=== PATIENT | female | born 1965 | race African-American/Black ===

== ENCOUNTER 2017-01-24 17:26 | Inpatient (IN) | payer MEDICAID ==
[2017-01-24] VITALS (11 sets, daily range): BP systolic 173–264; BP diastolic 82–134; PULSE 64–82; RESP 12–18; TEMP 98; O2SAT 95–100
[~2017-01-24] VITALS: Ht 162.6 cm; Wt 127.2 kg
[~2017-01-24 17:26] MED LIST: AMLO10 PO; FURO1TAB93 PO; HYDRA50 PO; INSU-118; ISOS30TA3 PO; METO50TA PO; NRSS SQ; POTA20PA PO; ST J81CH PO
--- NOTE | 2017-01-24 17:58 | PD ---
HPI Chief Complaint: GI Complaint Time Seen by Provider: 17:58 Travel History International Travel<30 days: No Contact w/Intl Traveler<30days: No Traveled to known affect area: No History of Present Illness HPI 51-year-old female came to the emergency room with history of dizziness since past 5 days. Patient says that she feels like she is leaning on one side which is mostly on the left. The symptoms get worse with sudden movements. No history of tinnitus or decreased hearing. Last night she had mild headache. She has been nauseous and today she vomited 3 times. No history of syncopal episode. Patient had a blood pressure of 230/105 when I went in the room. She has history of hypertension and she says she has been taking her medications like she supposed to. She was recently taken off one of her blood pressure medication one month ago by her primary care. Patient was admitted last month in [facility] fluid in her lungs. Currently she does not have any headache. Patient is awake and answering questions appropriately. [facility] Past Medical History Narrative Medical List of her past medical, surgical, social and family history is reviewed from the nursing note. Asthma: No Autoimmune Disease: No Blood Disorders: No Anxiety: No Depression: No Heart Rhythm Problems: Yes Cancer: No Cardiac Catheterization: Yes Cardiovascular Problems: Yes High Cholesterol: No Chemotherapy: No Chest Pain: Yes Congestive Heart Failure: No COPD: Yes Coronary Artery Disease: Yes (STATES SHE HAD AN [place] 07/2009) Diabetes: Yes Patient Takes Glucophage: Yes Diminished Hearing: No Endocrine: No Gastrointestinal Disorders: No Genitourinary: No Hypertension: Yes Immune Disorder: No Musculoskeletal: No Neurologic: No Psychiatric: No Reproductive: No Respiratory: Yes Myocardial Infarction: Yes (July 2009) Pneumonia: Yes (JULY 2009 WHEN HAD [place]) Radiation Therapy: No Sickle Cell Disease: No Sleep Apnea: No Thyroid Disease: Yes ?: Not Menopausal: No : 3 Para: 3 Past Surgical History Abdominal Surgery: No AICD: No Arteriovenous Shunt: No Cardiac Surgery: No Section: Yes Coronary Artery Bypass Graft: No Ear Surgery: No Endocrine Surgery: No Eye Surgery: No Genitourinary Surgery: No Gynecologic Surgery: Yes (C section) Insulin Pump: No Joint Replacement: No Oral Surgery: No Pacemaker: No Thoracic Surgery: No Other Surgery: Yes (LYPOMA REMOVED FROM CHEST) Family History Family Myocardial Infarction: Yes Social History Alcohol Use: Yes (SOCIALLY) Tobacco Use: Yes (1/2 ppd) Substance Use: No Allergies-Medications (Allergen,Severity, Reaction): Coded Allergies: diatrizoate meglumine (Unverified Allergy, Severe, RASH, 01/24/17) gadobenic acid (Unverified Allergy, Severe, RASH, 01/24/17) gadodiamide (Unverified Allergy, Severe, RASH, 01/24/17) gadoteridol (Unverified Allergy, Severe, RASH, 01/24/17) iodine (Unverified Allergy, Severe, RASH, HIVES, 01/24/17) iodixanol (Unverified Allergy, Severe, RASH, 01/24/17) iohexol (Unverified Allergy, Severe, RASH, 01/24/17) potassium iodide (Unverified Allergy, Severe, RASH, HIVES, 01/24/17) povidone-iodine (Unverified Allergy, Severe, RASH, HIVES, 01/24/17) sodium iodide (Unverified Allergy, Severe, RASH, HIVES, 01/24/17) sodium iodide (Unverified Allergy, Severe, RASH, HIVES, 01/24/17) Comments List of her allergies reviewed from the nursing note. Reported Meds & Prescriptions Reported Meds & Active Scripts Active Reported Metformin (Metformin HCl) 1,000 Mg Tab 1,000 Mg PO BID With meals Potassium Chloride ER (Potassium Chloride) 20 Meq Tab 20 Meq PO DAILY Metoprolol Tartrate 50 Mg Tab 50 Mg PO BID Isosorbide Mononitrate ER (Isosorbide Mononitrate) 30 Mg Betzy 30 Mg PO DAILY Hydralazine HCl 50 Mg Tablet 75 Mg PO Q8HR Lasix (Furosemide) 40 Mg Tab 40 Mg PO DAILY Aspirin Adult Low Strength (Aspirin) 81 Mg Tabdr 81 Mg PO DAILY Narrative Medication List of her home medications reviewed from the nursing note. Review of Systems Except as stated in HPI: all other systems reviewed are Neg Physical Exam Narrative GENERAL: Awake, alert, morbidly obese, moderate distress SKIN: Focused skin assessment warm/dry. HEAD: Atraumatic. Normocephalic. EYES: Pupils equal and round. No scleral icterus. No injection or drainage. ENT: No nasal bleeding or discharge. Mucous membranes pink and moist. NECK: Trachea midline. No JVD. CARDIOVASCULAR: Regular rate and rhythm. No murmur appreciated. RESPIRATORY: No accessory muscle use. Clear to auscultation. Breath sounds equal bilaterally. GASTROINTESTINAL: Abdomen soft, non-tender, nondistended. Hepatic and splenic margins not palpable. MUSCULOSKELETAL: No obvious deformities. No clubbing. No cyanosis. No edema. NEUROLOGICAL: Awake and alert. No obvious cranial nerve deficits. Motor grossly within normal limits. Normal speech. PSYCHIATRIC: Appropriate mood and affect; insight and judgment normal. Data Data Last Documented VS Vital Signs Date Time Temp Pulse Resp B/P (MAP) Pulse Ox O2 Delivery O2 Flow Rate FiO2 01/24/17 20:17 76 14 186/82 (116) 100 Room Air 01/24/17 17:30 98.0 Orders Orders Electrocardiogram (01/24/17 ) Prothrombin Time / Inr (Pt) (01/24/17 18:21) Complete Blood Count With Diff (01/24/17 18:21) Basic Metabolic Panel (Bmp) (01/24/17 18:21) Troponin I (01/24/17 18:21) Urinalysis - C+S If Indicated (01/24/17 18:21) Ct Brain W/O Iv Contrast(Rout) (01/24/17 18:21) Ecg Monitoring (01/24/17 18:21) Iv Access Insert/Monitor (01/24/17 18:21) Oximetry (01/24/17 18:21) Ondansetron Inj (Zofran Inj) (01/24/17 18:30) Sodium Chloride 0.9% Flush (Ns Flush) (01/24/17 18:30) Nicardipine Inj (Cardene Inj) (01/24/17 18:30) Meclizine (Antivert) (01/24/17 19:15) Urine Culture (01/24/17 18:51) Ceftriaxone Inj (Rocephin Inj) (01/24/17 19:45) Aspirin (Aspirin) (01/24/17 20:00) Admit Order (Ed Use Only) (01/24/17 20:22) Labs Laboratory Tests Test 01/24/17 18:30 9 18:51 White Blood Count 11.2 TH/MM3 Red Blood Count 4.54 MIL/MM3 Hemoglobin 12.0 GM/DL Hematocrit 36.9 % Mean Corpuscular Volume 81.3 FL Mean Corpuscular Hemoglobin 26.5 PG Mean Corpuscular Hemoglobin Concent 32.6 % Red Cell Distribution Width 17.8 % Platelet Count 282 TH/MM3 Mean Platelet Volume 10.5 FL Neutrophils (%) (Auto) 54.9 % Lymphocytes (%) (Auto) 35.4 % Monocytes (%) (Auto) 8.1 % Eosinophils (%) (Auto) 0.8 % Basophils (%) (Auto) 0.8 % Neutrophils # (Auto) 6.2 TH/MM3 Lymphocytes # (Auto) 4.0 TH/MM3 Monocytes # (Auto) 0.9 TH/MM3 Eosinophils # (Auto) 0.1 TH/MM3 Basophils # (Auto) 0.1 TH/MM3 CBC Comment DIFF FINAL Differential Comment Prothrombin Time 10.7 SEC Prothromb Time International Ratio 1.0 RATIO Blood Urea Nitrogen 11 MG/DL Creatinine 1.34 MG/DL Random Glucose 250 MG/DL Calcium Level 8.7 MG/DL Sodium Level 137 MEQ/L Potassium Level 3.5 MEQ/L Chloride Level 102 MEQ/L Carbon Dioxide Level 27.0 MEQ/L Anion Gap 8 MEQ/L Estimat Glomerular Filtration Rate 51 ML/MIN Troponin I 0.04 NG/ML Urine Color YELLOW Urine Turbidity HAZY Urine pH 6.0 Urine Specific [place] 1.015 Urine Protein TRACE mg/dL Urine Glucose (UA) 1000 mg/dL Urine Ketones NEG mg/dL Urine Occult Blood NEG Urine Nitrite NEG Urine Bilirubin NEG Urine Urobilinogen LESS THAN 2.0 MG/DL Urine Leukocyte Esterase MOD Urine RBC 14 /hpf Urine WBC 8 /hpf Urine Squamous Epithelial Cells 24 /hpf Urine Bacteria RARE /hpf Microscopic Urinalysis Comment CATH-CULTURE IND MDM Medical Decision Making Medical Screen Exam Complete: Yes Emergency Medical Condition: Yes Medical Record Reviewed: Yes Interpretation(s) Twelve-lead EKG was reviewed by me. Normal sinus rhythm, normal axis, LVH by voltage criteria, lateral T wave inversions which seems like LVH strain and unchanged from 05/20/2015. Heart rate of 64 bpm. Differential Diagnosis Intracranial bleed, stroke, hypertensive crisis Narrative Course 6:57 PM awaiting for blood test results and CAT scan to be done and resulted. Patient has been started on Cardene drip to lower the blood pressure. She will need to be admitted. Case will be signed over to the oncoming ER physician. Critical Care Narrative Aggregate critical care time was 30 minutes. Time to perform other separately billable procedures was not included in the critical care time. My time did not include minutes spent treating any other patients simultaneously or on activities that did not directly contribute to the patient's treatment. The services I provided to this patient were to treat and/or prevent clinically significant deterioration that could result in: Hypotensive crisis, Cardene drip I provided critical care services requiring my management, as noted below: Chart data review, documentation time, medication orders and management, vital sign assessments/reviewing monitor data, ordering and reviewing lab tests, ordering and interpreting/reviewing x-rays and diagnostic studies, care of the patient and discussion of the patient with the admitting physicians. Procedures EKG Prior to Arrival: Kellen Myers MD Jan 24, 2017 17:58
[2017-01-24] MEDS ORDERED: METF1000 PO (18:06)
[2017-01-24] MEDS ORDERED: METO50TA PO (18:06)
[2017-01-24] MEDS ORDERED: FURO1TAB60 PO (18:06)
[2017-01-24] MEDS ORDERED: ISOS30TA3 PO (18:06)
[2017-01-24] MEDS ORDERED: ASPI1TAB91 PO (18:06)
[2017-01-24] MEDS ORDERED: HYDR-3800 PO (18:06)
[2017-01-24] MEDS ORDERED: POTA-163 PO (18:06)
[2017-01-24] MEDS ORDERED: ONDANSETRON HCL 4 MG/2 ML VIAL IVP ONE (18:30)
[2017-01-24] MEDS ORDERED: SODIUM CHLORIDE 0.9% FLUSH 10 ML FLUSH IVF PRN (18:30)
[2017-01-24 18:40] LABS: AUTOMATED NEUTROPHIL # 6.2 TH/MM3 (1.8-7.7); BASOPHIL # 0.1 TH/MM3 (0-0.2); BASOPHIL % 0.8 % (0.0-2.0); EOSINOPHIL # 0.1 TH/MM3 (0-0.4); EOSINOPHIL % 0.8 % (0.0-4.0); HEMATOCRIT 36.9 % (35.0-46.0); HEMO FLAGS DIFF FINAL; LYMPH % 35.4 % (9.0-44.0); MEAN CELL VOLUME 81.3 FL (80.0-100.0); MEAN CORPUSCULAR HEMOGLOBIN 26.5 PG (27.0-34.0); MEAN CORPUSCULAR HGB CONC 32.6 % (32.0-36.0); MONO % 8.1 % (0.0-8.0); NEUT % 54.9 % (16.0-70.0); PLATELET COUNT 282 TH/MM3 (150-450); RED BLOOD COUNT 4.54 MIL/MM3 (4.00-5.30); RED CELL DISTRIBUTION WIDTH 17.8 % (11.6-17.2); WHITE BLOOD COUNT 11.2 TH/MM3 (4.0-11.0)
[2017-01-24] MEDS: niCARdipine INJ 25 MG in SODIUM CHLOR 0.9% 250 ML INJ 240 ML IV PRN ×3 (18:47→23:30)
[2017-01-24 18:48] LABS: PROTHROMBIN TIME - PATIENT 10.7 SEC (9.8-11.6)
--- NOTE | 2017-01-24 19:08 | PD ---
Physical Exam Date Seen by Provider: Jan 24, 2017 Time Seen by Provider: 19:06 Narrative The patient is a 51-year-old female was initially evaluated by the previous physician, Dr. Graves. Please refer to the initial history, physical, diagnostic evaluation, and treatment modality plan. The patient was signed out at [address] brain and laboratory evaluation pending for hypertensive emergency. Data Data Last Documented VS Vital Signs Date Time Temp Pulse Resp B/P (MAP) Pulse Ox O2 Delivery O2 Flow Rate FiO2 01/24/17 20:17 76 14 186/82 (116) 100 Room Air 01/24/17 17:30 98.0 Orders Orders Electrocardiogram (01/24/17 ) Prothrombin Time / Inr (Pt) (01/24/17 18:21) Complete Blood Count With Diff (01/24/17 18:21) Basic Metabolic Panel (Bmp) (01/24/17 18:21) Troponin I (01/24/17 18:21) Urinalysis - C+S If Indicated (01/24/17 18:21) Ct Brain W/O Iv Contrast(Rout) (01/24/17 18:21) Ecg Monitoring (01/24/17 18:21) Iv Access Insert/Monitor (01/24/17 18:21) Oximetry (01/24/17 18:21) Ondansetron Inj (Zofran Inj) (01/24/17 18:30) Sodium Chloride 0.9% Flush (Ns Flush) (01/24/17 18:30) Nicardipine Inj (Cardene Inj) (01/24/17 18:30) Meclizine (Antivert) (01/24/17 19:15) Urine Culture (01/24/17 18:51) Ceftriaxone Inj (Rocephin Inj) (01/24/17 19:45) Aspirin (Aspirin) (01/24/17 20:00) Admit Order (Ed Use Only) (01/24/17 20:22) Labs Laboratory Tests Test 01/24/17 18:30 01/24/17 18:51 White Blood Count 11.2 TH/MM3 Red Blood Count 4.54 MIL/MM3 Hemoglobin 12.0 GM/DL Hematocrit 36.9 % Mean Corpuscular Volume 81.3 FL Mean Corpuscular Hemoglobin 26.5 PG Mean Corpuscular Hemoglobin Concent 32.6 % Red Cell Distribution Width 17.8 % Platelet Count 282 TH/MM3 Mean Platelet Volume 10.5 FL Neutrophils (%) (Auto) 54.9 % Lymphocytes (%) (Auto) 35.4 % Monocytes (%) (Auto) 8.1 % Eosinophils (%) (Auto) 0.8 % Basophils (%) (Auto) 0.8 % Neutrophils # (Auto) 6.2 TH/MM3 Lymphocytes # (Auto) 4.0 TH/MM3 Monocytes # (Auto) 0.9 TH/MM3 Eosinophils # (Auto) 0.1 TH/MM3 Basophils # (Auto) 0.1 TH/MM3 CBC Comment DIFF FINAL Differential Comment Prothrombin Time 10.7 SEC Prothromb Time International Ratio 1.0 RATIO Blood Urea Nitrogen 11 MG/DL Creatinine 1.34 MG/DL Random Glucose 250 MG/DL Calcium Level 8.7 MG/DL Sodium Level 137 MEQ/L Potassium Level 3.5 MEQ/L Chloride Level 102 MEQ/L Carbon Dioxide Level 27.0 MEQ/L Anion Gap 8 MEQ/L Estimat Glomerular Filtration Rate 51 ML/MIN Troponin I 0.04 NG/ML Urine Color YELLOW Urine Turbidity HAZY Urine pH 6.0 Urine Specific [place] 1.015 Urine Protein TRACE mg/dL Urine Glucose (UA) 1000 mg/dL Urine Ketones NEG mg/dL Urine Occult Blood NEG Urine Nitrite NEG Urine Bilirubin NEG Urine Urobilinogen LESS THAN 2.0 MG/DL Urine Leukocyte Esterase MOD Urine RBC 14 /hpf Urine WBC 8 /hpf Urine Squamous Epithelial Cells 24 /hpf Urine Bacteria RARE /hpf Microscopic Urinalysis Comment CATH-CULTURE IND MDM Medical Record Reviewed: Yes Supervised Visit with FARNAZ: No Interpretation(s) Last Impressions Head CT 01/24/17 1821 Signed Impressions: Service Date/Time: January 19:24 - CONCLUSION: No acute intracranial abnormality demonstrated. An apparent old, small left basal ganglia lacunar infarct. Jalen Reyes MD Laboratory Tests Test 01/24/17 18:30 01/24/17 18:51 White Blood Count 11.2 TH/MM3 Red Blood Count 4.54 MIL/MM3 Hemoglobin 12.0 GM/DL Hematocrit 36.9 % Mean Corpuscular Volume 81.3 FL Mean Corpuscular Hemoglobin 26.5 PG Mean Corpuscular Hemoglobin Concent 32.6 % Red Cell Distribution Width 17.8 % Platelet Count 282 TH/MM3 Mean Platelet Volume 10.5 FL Neutrophils (%) (Auto) 54.9 % Lymphocytes (%) (Auto) 35.4 % Monocytes (%) (Auto) 8.1 % Eosinophils (%) (Auto) 0.8 % Basophils (%) (Auto) 0.8 % Neutrophils # (Auto) 6.2 TH/MM3 Lymphocytes # (Auto) 4.0 TH/MM3 Monocytes # (Auto) 0.9 TH/MM3 Eosinophils # (Auto) 0.1 TH/MM3 Basophils # (Auto) 0.1 TH/MM3 CBC Comment DIFF FINAL Differential Comment Prothrombin Time 10.7 SEC Prothromb Time International Ratio 1.0 RATIO Blood Urea Nitrogen 11 MG/DL Creatinine 1.34 MG/DL Random Glucose 250 MG/DL Calcium Level 8.7 MG/DL Sodium Level 137 MEQ/L Potassium Level 3.5 MEQ/L Chloride Level 102 MEQ/L Carbon Dioxide Level 27.0 MEQ/L Anion Gap 8 MEQ/L Estimat Glomerular Filtration Rate 51 ML/MIN Troponin I 0.04 NG/ML Urine Color YELLOW Urine Turbidity HAZY Urine pH 6.0 Urine Specific [place] 1.015 Urine Protein TRACE mg/dL Urine Glucose (UA) 1000 mg/dL Urine Ketones NEG mg/dL Urine Occult Blood NEG Urine Nitrite NEG Urine Bilirubin NEG Urine Urobilinogen LESS THAN 2.0 MG/DL Urine Leukocyte Esterase MOD Urine RBC 14 /hpf Urine WBC 8 /hpf Urine Squamous Epithelial Cells 24 /hpf Urine Bacteria RARE /hpf Microscopic Urinalysis Comment CATH-CULTURE IND Differential Diagnosis Differential diagnosis includes hypertensive emergency, hypertensive urgency, intracranial hemorrhage, CVA, hypertension, noncompliance. Narrative Course The patient was initially evaluated by the previous physician, Dr. Graves. Please refer to the initial history, physical, diagnostic evaluation, and treatment modality plan. The patient was signed out at 7 PM with laboratory evaluation and CT of the brain pending. The patient was placed on a Cardene drip by Dr. Graves prior to sign out. Laboratory evaluation reveals troponin 0.04, creatinine 1.34, CT the brain is negative for acute hemorrhage, does reveal old basal ganglia infarct. I reevaluated the patient at 7:45 PM, she does complain of dizziness with nausea, states her last 2 days she has been leaning to the left and walking to the left while ambulating. CT of the brain does reveal an old infarct, patient has no recollection of previous stroke or deficits. The patient currently does not have a primary physician. The patient is still symptomatic, blood pressure was 180s systolic and 90s diastolic , is currently on a Cardene drip, will be admitted to the intensive care unit. Therefore, the on-call coal weigher was paged for admission. The patient may be experiencing brain stem/cerebellar or infarct with dizziness and ataxia, therefore, patient was administered aspirin 325 mg orally. Critical Care Narrative Aggregate critical care time was 35 minutes. Time to perform other separately billable procedures was not included in the critical care time. My time did not include minutes spent treating any other patients simultaneously or on activities that did not directly contribute to the patient's treatment. The services I provided to this patient were to treat and/or prevent clinically significant deterioration that could result in: Hypertensive urgency, hypertensive emergency, CVA, intracranial hemorrhage. I provided critical care services requiring my management, as noted below: Chart data review, documentation time, medication orders and management, vital sign assessments/reviewing monitor data, ordering and reviewing lab tests, ordering and interpreting/reviewing x-rays and diagnostic studies, care of the patient and discussion of the patient with the admitting physicians. Physician Communication Physician Communication The on-call coal weigher was paged for admission. I discussed the patient with the on-call coal weigher, Dr. Napier, who agrees with admission. Diagnosis Primary Impression: Hypertensive emergency Admitting Information Admitting Physician Requests: Admit Condition: Stable Eagle Kahn MD Jan 24, 2017 19:08
[2017-01-24] MEDS ORDERED: MECLIZINE HCL 25 MG TAB PO ONE (19:15)
[2017-01-24 19:22] LABS: POTASSIUM 3.5 MEQ/L (3.5-5.1)
[2017-01-24 19:29] LABS: BACTERIA, URINE RARE /hpf; BLOOD, URINE NEG (NEG); GLUCOSE,URINE 1000 mg/dL (NEG); KETONE, URINE NEG (NEG); NITRITE,URINE NEG (NEG); SQUAMOUS EPITHELIAL CELL URINE 24 /hpf (0-5); URINE COLOR YELLOW (YELLW/STRAW)
[2017-01-24 19:30] LABS: COMMENT (UR) CATH-CULTURE IND; CULTURE IF INDICATED CATH CULTURE IND
--- NOTE | 2017-01-24 19:36 | RADRPT ---
EXAM DATE/TIME: 01/24/2017 19:24 [facility] COMPARISON: No previous studies available for comparison. INDICATIONS : Dizziness, weakness and vomiting x1 week. RADIATION DOSE: 37.24 CTDIvol (mGy) MEDICAL HISTORY : Myocardial infarction. Hypertension. Coronary artery disease. SURGICAL HISTORY : Cardiac catherization. ENCOUNTER: Initial ACUITY: 1 week PAIN SCALE: 0/10 LOCATION: cranial TECHNIQUE: Multiple contiguous axial images were obtained of the head. Using automated exposure control and adj ustment of the mA and/or kV according to patient size, radiation dose was kept as low as reasonably a chievable to obtain optimal diagnostic quality images. DICOM format image data is available electro nically for review and comparison. FINDINGS: CEREBRUM: The ventricles are normal for age. No evidence of midline shift, mass lesion, hemorrhage or acute in farction. No extra-axial fluid collections are seen. 7 x 12 mm chronic appearing low attenuation see n in the left basal ganglia, probably an old lacunar infarct. POSTERIOR FOSSA: The cerebellum and brainstem are intact. The 4th ventricle is midline. The cerebellopontine angle i s unremarkable. EXTRACRANIAL: The visualized portion of the orbits is intact. SKULL: The calvaria is intact. No evidence of skull fracture. Hyperostosis noted. CONCLUSION: No acute intracranial abnormality demonstrated. An apparent old, small left basal ganglia lacunar inf arct. Jalen Reyes MD on January 24, 2017 at 19:33 Board Certified Radiologist. This report was verified electronically.
[2017-01-24] MEDS ORDERED: cefTRIAXone INJ 1,000 MG in SODIUM CHLORIDE 0.9% INJ 100 ML IV ONE (19:45)
[2017-01-24] MEDS ORDERED: ASPIRIN 325 MG TAB PO ONE (20:00)
[2017-01-24] MEDS ORDERED: RESP: ALBUTEROL 2.5 MG/IPRATROPIUM 0.5 MG NEB (PRN) INH (20:30)
[2017-01-24] MEDS ORDERED: POTASSIUM PHOSPHATE INJ 30 MMOL in SODIUM CHLOR 0.9% 250 ML INJ 250 ML IV PRN (20:30)
[2017-01-24] MEDS ORDERED: SODIUM PHOSPHATE INJ 30 MMOL in SODIUM CHLOR 0.9% 250 ML INJ 240 ML IV PRN (20:30)
[2017-01-24] MEDS ORDERED: DEXTROSE 50% IN WATER 50 ML VIAL(D50) IV PUSH PRN (20:30)
[2017-01-24] MEDS ORDERED: POTASSIUM PHOSPHATE MONOBASIC 500 MG TAB PO/TUBE PRN (20:30)
[2017-01-24] MEDS ORDERED: POTASSIUM PHOSPHATE MONOBASIC 500 MG TAB PO PRN (20:30)
[2017-01-24] MEDS ORDERED: MAGNESIUM OXIDE 400 MG TAB PO PRN (20:30)
[2017-01-24] MEDS ORDERED: CHLORHEXIDINE GLUCONATE 2 % 1 PACK (2 CLOTHS) TOP PRN (20:30)
[2017-01-24] MEDS ORDERED: MAGNESIUM SULFATE INJ 2 GM in SODIUM CHLORIDE 0.9% INJ 96 ML IV PRN (20:30)
[2017-01-24] MEDS ORDERED: POTASSIUM CHLOR 20 MEQ PREMIX 100 ML IV PRN ×2 (20:30)
[2017-01-24] MEDS ORDERED: POTASSIUM CHLOR 40 MEQ PREMIX 100 ML IV PRN ×2 (20:30)
[2017-01-24] MEDS ORDERED: hydrALAZINE HCL 20 MG/ML VIAL IV PUSH PRN (20:30)
[2017-01-24] MEDS ORDERED: MISCELLANEOUS NURSING INFORMATION XX SCH (20:30)
[2017-01-24] MEDS ORDERED: MAGNESIUM SULFATE INJ 4 GM in SODIUM CHLORIDE 0.9% INJ 92 ML IV PRN (20:30)
--- NOTE | 2017-01-24 20:35 | HHI.HP ---
[facility] Service Critical Care Medicine Primary Care Physician No Primary Care Physician Admission Diagnosis hypertensive emergency, dizziness Diagnosis: Chief Complaint: dizziness Travel History International Travel<30 Days: No Contact w/Intl Traveler <30 Da: No Traveled to Known Affected Are: No History of Present Illness The proximally 4 days of worsening dizziness. Patient states she feels like she is leaning to her left side. She has never had these symptoms before. Her only other symptom is nausea, and she did vomit once yesterday, but not since. Her nausea is not related to food. It is intermittent, but currently present. She does have a history of hypertension, but she states that she thinks that it' s well-controlled on medicine. In the emergency department she had a systolic blood pressure over 230. She was started on a nicardipine infusion. Noncontrasted head CT was negative. Her creatinine is elevated at 1.34 with an unknown baseline. She denies chest pain, shortness of breath, fever, chills, vomiting, diarrhea, constipation. Review of Systems Constitutional: COMPLAINS OF: Dizziness, DENIES: Diaphoretic episodes, Fatigue , Fever, Chills, Change in appetite Eyes: DENIES: Blurred vision, Diplopia, Vision loss, Photosensitivity, Double Vision Ears, nose, mouth, throat: DENIES: Vertigo Respiratory: DENIES: Cough, Sputum production, Shortness of breath Cardiovascular: DENIES: Chest pain, Palpitations, Syncope, Dyspnea on Exertion , PND Gastrointestinal: COMPLAINS OF: Nausea, Vomiting, DENIES: Abdominal pain, Black stools, Bloody stools, Constipation, Diarrhea Genitourinary: DENIES: Urinary frequency, Urinary incontinence, Urgency Neurologic: COMPLAINS OF: Poor Balance, DENIES: Abnormal gait, Headache, Localized weakness, Paresthesias, Seizures, Speech Problems, Tremor Past Family Social History Allergies: Coded Allergies: diatrizoate meglumine (Unverified Allergy, Severe, RASH, 01/24/17) gadobenic acid (Unverified Allergy, Severe, RASH, 01/24/17) gadodiamide (Unverified Allergy, Severe, RASH, 01/24/17) gadoteridol (Unverified Allergy, Severe, RASH, 01/24/17) iodine (Unverified Allergy, Severe, RASH, HIVES, 01/24/17) iodixanol (Unverified Allergy, Severe, RASH, 01/24/17) iohexol (Unverified Allergy, Severe, RASH, 01/24/17) potassium iodide (Unverified Allergy, Severe, RASH, HIVES, 01/24/17) povidone-iodine (Unverified Allergy, Severe, RASH, HIVES, 01/24/17) sodium iodide (Unverified Allergy, Severe, RASH, HIVES, 01/24/17) sodium iodide (Unverified Allergy, Severe, RASH, HIVES, 01/24/17) Past Medical History PFSH Past Medical History Narrative Medical List of her past medical, surgical, social and family history is reviewed from the nursing note. Asthma: No Autoimmune Disease: No Blood Disorders: No Anxiety: No Depression: No Heart Rhythm Problems: Yes Cancer: No Cardiac Catheterization: Yes Cardiovascular Problems: Yes High Cholesterol: No Chemotherapy: No Chest Pain: Yes Congestive Heart Failure: No COPD: Yes Coronary Artery Disease: Yes (STATES SHE HAD AN AR 07/2009) Diabetes: Yes Patient Takes Glucophage: Yes Diminished Hearing: No Endocrine: No Gastrointestinal Disorders: No Genitourinary: No Hypertension: Yes Immune Disorder: No Musculoskeletal: No Neurologic: No Psychiatric: No Reproductive: No Respiratory: Yes Myocardial Infarction: Yes (July 2009) Pneumonia: Yes (JULY 2009 WHEN HAD AR) Radiation Therapy: No Sickle Cell Disease: No Sleep Apnea: No Thyroid Disease: Yes ?: Not Menopausal: No : 3 Para: 3 Past Surgical History Past Surgical History Abdominal Surgery: No AICD: No Arteriovenous Shunt: No Cardiac Surgery: No Section: Yes Coronary Artery Bypass Graft: No Ear Surgery: No Endocrine Surgery: No Eye Surgery: No Genitourinary Surgery: No Gynecologic Surgery: Yes (C section) Insulin Pump: No Joint Replacement: No Oral Surgery: No Pacemaker: No Thoracic Surgery: No Other Surgery: Yes (LYPOMA REMOVED FROM CHEST) Reported Medications Metformin (Metformin HCl) 1,000 Mg Tab 1,000 Mg PO BID With meals Potassium Chloride ER (Potassium Chloride) 20 Meq Tab 20 Meq PO DAILY Metoprolol Tartrate 50 Mg Tab 50 Mg PO BID Isosorbide Mononitrate ER (Isosorbide Mononitrate) 30 Mg Betzy 30 Mg PO DAILY Hydralazine HCl 50 Mg Tablet 75 Mg PO Q8HR Lasix (Furosemide) 40 Mg Tab 40 Mg PO DAILY Aspirin Adult Low Strength (Aspirin) 81 Mg Tabdr 81 Mg PO DAILY Active Ordered Medications See MAR Family History + AR. Social History social etoh use. 1/2 ppd current smoker. Physical Exam Vital Signs Vital Signs Date Time Temp Pulse Resp B/P (MAP) Pulse Ox O2 Delivery O2 Flow Rate FiO2 01/24/17 20:29 77 16 190/88 (122) 98 Room Air 01/24/17 20:17 76 14 186/82 (116) 100 Room Air 01/24/17 19:59 74 16 184/84 (117) 100 Room Air 01/24/17 19:43 70 16 192/88 (122) 100 Room Air 01/24/17 18:54 67 17 218/103 (141) 99 Room Air 01/24/17 18:48 64 16 264/134 (177) 100 Room Air 01/24/17 18:47 63 224/102 01/24/17 17:30 98.0 70 18 238/108 (151) 95 Physical Exam GENERAL: Morbidly obese middle-aged female, lying in bed, distress due to her dizziness and nausea HEENT: Normocephalic. Atraumatic. Pupils equal, round, reactive, conjugate. Mucous membranes are moist NECK: Trachea is midline. There is no JVD. CHEST: Equal chest rise. On nasal cannula oxygen. CARDIOVASCULAR: Normal rate, regular rhythm. Systolic blood pressure is 190 on 10 mg per hour of nicardipine ABDOMEN: Soft, nontender, nondistended. No guarding. MUSCULOSKELETAL: Pulses 2+. No peripheral edema. NEUROLOGICAL: RASS 0. GCS 15. No focal deficits. Muscle skeletal strength 5/ 5 in all 4 extremities. Sensation grossly intact. Cranial nerves II through XII grossly intact Laboratory Laboratory Tests Test 01/24/17 18:30 01/24/17 18:51 White Blood Count 11.2 Red Blood Count 4.54 Hemoglobin 12.0 Hematocrit 36.9 Mean Corpuscular Volume 81.3 Mean Corpuscular Hemoglobin 26.5 Mean Corpuscular Hemoglobin Concent 32.6 Red Cell Distribution Width 17.8 Platelet Count 282 Mean Platelet Volume 10.5 Neutrophils (%) (Auto) 54.9 Lymphocytes (%) (Auto) 35.4 Monocytes (%) (Auto) 8.1 Eosinophils (%) (Auto) 0.8 Basophils (%) (Auto) 0.8 Neutrophils # (Auto) 6.2 Lymphocytes # (Auto) 4.0 Monocytes # (Auto) 0.9 Eosinophils # (Auto) 0.1 Basophils # (Auto) 0.1 CBC Comment DIFF FINAL Differential Comment Prothrombin Time 10.7 Prothromb Time International Ratio 1.0 Blood Urea Nitrogen 11 Creatinine 1.34 Random Glucose 250 Calcium Level 8.7 Sodium Level 137 Potassium Level 3.5 Chloride Level 102 Carbon Dioxide Level 27.0 Anion Gap 8 Estimat Glomerular Filtration Rate 51 Troponin I 0.04 Urine Color YELLOW Urine Turbidity HAZY Urine pH 6.0 Urine Specific [place] 1.015 Urine Protein TRACE Urine Glucose (UA) 1000 Urine Ketones NEG Urine Occult Blood NEG Urine Nitrite NEG Urine Bilirubin NEG Urine Urobilinogen LESS THAN 2.0 Urine Leukocyte Esterase MOD Urine RBC 14 Urine WBC 8 Urine Squamous Epithelial Cells 24 Urine Bacteria RARE Microscopic Urinalysis Comment CATH-CULTURE IND Date/Time Source Procedure Growth Status 01/24/17 18:51 Urine Catheterized Urine Urine Culture Pending Received Result Diagram: 01/24/17 1830 01/24/17 1830 Imaging Last [address] 01/24/17 1821 Signed Impressions: Service Date/Time: January 19:24 - CONCLUSION: No acute intracranial abnormality demonstrated. An apparent old, small left basal ganglia lacunar infarct. MD Leona De La Cruzi VTE Risk Assessment Caprini VTE Risk Assessment: Mod/High Risk (score >= 2) Caprini Risk Assessment Model Point Value = 1 Point Value = 2 Point Value = 3 Point Value = 5 Age 41-60 Minor surgery BMI > 25 kg/m2 Swollen legs Varicose veins or History of unexplained or recurrent spontaneous Oral contraceptives or hormone replacement Sepsis (< 1 month) Serious lung disease, including pneumonia (< 1 month) Abnormal pulmonary function Acute myocardial infarction Congestive heart failure (< 1 month) History of inflammatory bowel disease Medical patient at bed rest Age 61-74 Arthroscopic surgery Major open surgery (> 45 min) Laparoscopic surgery (> 45 min) Malignancy Confined to bed (> 72 hours) Immobilizing plaster cast Central venous access Age >= 75 History of VTE Family history of VTE Factor V Leiden Prothrombin [id number] Lupus anticoagulant Anticardiolipin antibodies Elevated serum homocysteine Heparin-induced thrombocytopenia Other congenital or acquired thrombophilia Stroke (< 1 month) Elective arthroplasty Hip, pelvis, or leg fracture Acute spinal cord injury (< 1 month) Prophylaxis Regimen Total Risk Factor Score Risk Level Prophylaxis Regimen 0-1 Low Early ambulation 2 Moderate Order ONE of the following: *Sequential Compression Device (SCD) *Heparin 5000 units SQ BID 3-4 Higher Order ONE of the following medications: *Heparin 5000 units SQ TID *Enoxaparin/Lovenox 40 mg SQ daily (WT < 150 kg, CrCl > 30 mL/min) *Enoxaparin/Lovenox 30 mg SQ daily (WT < 150 kg, CrCl > 10-29 mL/min) *Enoxaparin/Lovenox 30 mg SQ BID (WT < 150 kg, CrCl > 30 mL/min) AND/OR *Sequential Compression Device (SCD) 5 or more Highest Order ONE of the following medications: *Heparin 5000 units SQ TID (Preferred with Epidurals) *Enoxaparin/Lovenox 40 mg SQ daily (WT < 150 kg, CrCl > 30 mL/min) *Enoxaparin/Lovenox 30 mg SQ daily (WT < 150 kg, CrCl > 10-29 mL/min) *Enoxaparin/Lovenox 30 mg SQ BID (WT < 150 kg, CrCl > 30 mL/min) AND *Sequential Compression Device (SCD) Assessment and Plan Assessment and Plan Assessment: 51yF with Hypertensive Urgency and dizziness. Hypertension and dizziness could represent posterior fossa CVA, so we will proceed with MRI brain. If this is negative, then Hypertensive urgency will be treated with iv nicardipine infusion and PO meds to control blood pressure and transition her back to an oral regimen with better control. For now, she remains critically ill with symptomatic hypertensive urgency, possible emergency if she has ongoing CVA. Plan by systems: Neurologic: Dizziness - possible posterior fossa CVA - f/u MRI - frequent neuro checks - avoid long-acting sedating meds Respiratory: - wean o2 for spo2 > 92% Cardiovascular: Hypertensive Urgency - restart home meds: imdur, metoprolol, hydralazine - add amlodipine 10mg po daily - cardene drip - goal sbp < 180 for now. - prn labetalol, hydralazine iv for goal. Renal: Acute Kidney Injury - unknown baseline Cr. - trend on BMP -- Strict I/Os FEN/GI: Nausea - Zofran when necessary - NPO with nursing bedside swallow eval. slowly advance diet. - ICU electrolyte protocol - daily BMP Heme/ID: - no infectious etiology suspected - daily CBC Endocrine: Hyperglycemia of critical illness -- SSI, high-dose, every 4 Prophylaxis: GI Prophylaxis - Pepcid DVT Prophylaxis -- SCDs - SQH Lines: piv's Dispo: Admit to ICU. remains critically ill. Juan Luis Napier MD Jan 24, 2017 20:35
[2017-01-24] MEDS: SODIUM CHLOR 0.9% 1000 ML INJ 1,000 ML IV SCH (20:36)
[2017-01-24] MEDS: ISOSORBIDE MONONITRATE 30 MG TAB PO SCH (21:07)
[2017-01-24] MEDS: METOPROLOL TARTRATE 50 MG TAB PO SCH (21:08)
[2017-01-24] MEDS: HEPARIN SODIUM - SQ 10,000 UNITS/ML VIAL SQ SCH (21:08)
[2017-01-24] MEDS: FAMOTIDINE 20 MG TAB PO SCH (21:08)
[2017-01-24] MEDS: DOCUSATE SODIUM 50 MG/SENNA 8.6 MG TAB PO SCH (21:08)
[2017-01-24] MEDS: hydrALAZINE HCL 25 MG TAB PO SCH (21:37)
[2017-01-24] MEDS: CHLORHEXIDINE GLUCONATE 2 % 1 PACK (2 CLOTHS) TOP SCH (21:37)
--- NOTE | 2017-01-24 22:37 | RADRPT ---
EXAM DATE/TIME: 01/24/2017 22:07 [facility] COMPARISON: CT BRAIN W/O CONTRAST, January 24, 2017, 19:24. INDICATIONS : TIA. MEDICAL HISTORY : Hypertension. Diabetes. SURGICAL HISTORY : section. ENCOUNTER: Subsequent ACUITY: 1 day PAIN SCORE: 5/10 LOCATION: cranial TECHNIQUE: Multiplanar, multisequence MRI of the brain was performed without contrast. FINDINGS: CEREBRUM: The ventricles are normal for age. No evidence of midline shift , hemorrhage or acute infarction. N o extraaxial fluid collections are seen. 12 mm posterior parietal para falcine mass possible, series 6 image 21. The pituitary gland and suprasellar cistern are normal in configuration. WHITE MATTER: A few scattered, small foci of flair signal abnormality seen in the periventricular white matter of b oth cerebral hemispheres. POSTERIOR FOSSA: The cerebellum and brainstem are intact. The 4th ventricle is midline. The cerebellopontine angle is unremarkable. The cerebellar tonsils are normal in position. DIFFUSION IMAGIN mm focus of restricted diffusion seen in the left basal ganglia. This corresponds to a low attenuat ion area on the comparison head CT, thought to be old but is shown by the MRI to be a acute or subacu te infarct. EXTRACRANIAL: The visualized portions of the orbits and paranasal sinuses are unremarkable. CONCLUSION: 1. 9 mm acute or subacute infarct of the left basal ganglia. 2. Mild chronic periventricular white matter changes. 3. Possibly a small perifalcine meningioma posteriorly of the parietal lobe. Jalen Reyes MD on January 24, 2017 at 22:31 Board Certified Radiologist. This report was verified electronically.
[2017-01-24] MEDS: ONDANSETRON HCL 4 MG/2 ML VIAL IV PUSH PRN (23:00)
[2017-01-25] VITALS (12 sets, daily range): BP systolic 127–208; BP diastolic 59–88; PULSE 62–116; RESP 18–24; TEMP 97.7–98.4; O2SAT 94–100
[2017-01-25] MEDS: niCARdipine INJ 25 MG in SODIUM CHLOR 0.9% 250 ML INJ 240 ML IV PRN ×3 (01:30→21:30)
[2017-01-25] MEDS: MAGNESIUM SULFATE 1 GM PREMIX 100 ML IV SCH ×2 (03:15→04:15)
[2017-01-25] MEDS ORDERED: DILTIAZEM HCL 25 MG/5 ML VIAL IV ONE (03:15)
[2017-01-25] MEDS: INSULIN NovoLIN REGULAR SUPPLEMENTAL SCALE SQ SCH ×6 (03:32→20:00)
[2017-01-25] MEDS: ISOSORBIDE MONONITRATE 30 MG TAB PO SCH (05:08)
[2017-01-25] MEDS: hydrALAZINE HCL 25 MG TAB PO SCH ×3 (05:08→22:00)
[2017-01-25] MEDS: HEPARIN SODIUM - SQ 10,000 UNITS/ML VIAL SQ SCH ×3 (05:30→23:01)
[2017-01-25] MEDS: ONDANSETRON HCL 4 MG/2 ML VIAL IV PUSH PRN ×2 (05:30→15:52)
[2017-01-25 06:17] LABS: HEMATOCRIT 37.9 % (35.0-46.0); MEAN CELL VOLUME 81.8 FL (80.0-100.0); MEAN CORPUSCULAR HEMOGLOBIN 25.8 PG (27.0-34.0); MEAN CORPUSCULAR HGB CONC 31.5 % (32.0-36.0); PLATELET COUNT 295 TH/MM3 (150-450); RED BLOOD COUNT 4.63 MIL/MM3 (4.00-5.30); REVIEW FLAG FINAL
[2017-01-25 06:38] LABS: BICARBONATE 25.3 MEQ/L (21.0-32.0); POTASSIUM 3.1 MEQ/L (3.5-5.1)
[2017-01-25] MEDS: SODIUM CHLOR 0.9% 1000 ML INJ 1,000 ML IV SCH ×2 (08:16→20:11)
[2017-01-25] MEDS: ASPIRIN EC 81 MG TABEC PO SCH (08:39)
[2017-01-25] MEDS: FAMOTIDINE 20 MG TAB PO SCH ×2 (08:40→23:03)
[2017-01-25] MEDS: DOCUSATE SODIUM 50 MG/SENNA 8.6 MG TAB PO SCH ×2 (08:40→23:01)
[2017-01-25] MEDS: METOPROLOL TARTRATE 50 MG TAB PO SCH ×2 (08:41→23:02)
[2017-01-25] MEDS: FUROSEMIDE 40 MG TAB PO SCH (08:41)
--- NOTE | 2017-01-25 08:48 | RADRPT ---
EXAM DATE/TIME: 01/25/2017 07:36 [facility] COMPARISON: No previous studies available for comparison. INDICATIONS : Cerebrovascular accident. MEDICAL HISTORY : Myocardial infarction. Hypertension. Chronic obstructive pulmonary disease. Diabetes. SURGICAL HISTORY : section. Lipoma removed from chest. ENCOUNTER: Initial ACUITY: 1 day PAIN SCORE: 0/10 LOCATION: Bilateral neck PEAK SYSTOLIC VELOCITIES (cm/sec): ICA/CCA RATIO: Right: 1.5 Left: 1.9 ICA: Right: 80 Left: 70 CCA: Right: 52 Left: 38 ECA: Right: 76 Left: 367 VERTEBRAL: Right: 54 antegrade Left: 49 antegrade Elevated flow velocities and ICA/CCA ratios have been found to correlate with increased degrees of vessel stenosis, calculated as percentage of diameter relative to a normal segment of distal ICA/CCA FINDINGS: RIGHT CAROTID: No significant stenosis is visualized. Mild plaque. The waveforms are within normal limits. LEFT CAROTID: No significant stenosis is visualized. Mild plaque. The waveforms are within normal limits. VERTEBRAL ARTERIES: Antegrade flow is seen in both vertebral arteries. MISCELLANEOUS: None. CONCLUSION: Mild plaque was slightly elevated ratios but no hemodynamically significant stenosis. Lorenzo Meade MD on January 25, 2017 at 8:45 Board Certified Radiologist. This report was verified electronically.
--- NOTE | 2017-01-25 11:43 | HHI.CCPN ---
Subjective Remarks/Hospital Course The proximally 4 days of worsening dizziness. Patient states she feels like she is leaning to her left side. She has never had these symptoms before. Her only other symptom is nausea, and she did vomit once yesterday, but not since. Her nausea is not related to food. It is intermittent, but currently present. She does have a history of hypertension, but she states that she thinks that it' s well-controlled on medicine. In the emergency department she had a systolic blood pressure over 230. She was started on a nicardipine infusion. Noncontrasted head CT was negative. Her creatinine is elevated at 1.34 with an unknown baseline. She denies chest pain, shortness of breath, fever, chills, vomiting, diarrhea, constipation. Subjective: 01/25: The patient does complains of persistent nausea, refusing anti-emetic Zofran. Patient is alert and oriented, denies pain. Blood pressure well controlled with oral antihypertensive medications. Nicardipine discontinued early a.m.. Patient had episode of A. fib RVR received Cardizem, with resolution of symptoms. The patient continues to have elevated glucose levels and currently remains on high-dose insulin protocol. Objective Vital Signs Date Time Temp Pulse Resp B/P (MAP) Pulse Ox O2 Delivery O2 Flow Rate FiO2 01/25/17 08:00 67 01/25/17 08:00 97.7 20 164/84 (110) 100 01/24/17 21:12 Room Air Result Diagram: 01/25/17 0534 01/25/17 0534 Imaging Last [address] 01/24/17 1821 Signed Impressions: Service Date/Time: January 19:24 - CONCLUSION: No acute intracranial abnormality demonstrated. An apparent old, small left basal ganglia lacunar infarct. Jalen Reyes MD Objective Remarks GENERAL: Morbidly obese middle-aged female, lying in bed, mild distress with complaints of nausea HEENT: Normocephalic. Atraumatic. Pupils equal, round, reactive, conjugate. Mucous membranes are moist NECK: Trachea is midline. There is no JVD. CHEST: Equal chest rise. Clear to auscultation bilaterally. No sensory muscle movement CARDIOVASCULAR: Normal rate, regular rhythm. Systolic blood pressure is 170's ABDOMEN: Soft, nontender, nondistended. No guarding. MUSCULOSKELETAL: Pulses 2+. No peripheral edema. NEUROLOGICAL: RASS 0. GCS 15. No focal deficits. Muscle skeletal strength 5/ 5 in all 4 extremities. Sensation grossly intact. Cranial nerves II through XII grossly intact A/P Assessment and Plan Assessment: 51yF with Hypertensive Urgency and dizziness. Hypertension and dizziness could represent posterior fossa CVA, so we will proceed with MRI brain. If this is negative, then Hypertensive urgency will be treated with iv nicardipine infusion and PO meds to control blood pressure and transition her back to an oral regimen with better control. For now, she remains critically ill with symptomatic hypertensive urgency, possible emergency if she has ongoing CVA. Plan by systems: Neurologic: Dizziness - possible posterior fossa CVA - f/u MRI - frequent neuro checks - avoid long-acting sedating meds -01/24 MRI revealed a 9 mm subacute or basal ganglia, and possible meningioma of the parietal lobe -Neurology and neurosurgery consulted Respiratory: - wean o2 for spo2 > 92% -No respiratory compromise patient currently on room air Cardiovascular: Hypertensive Urgency - Continue home meds: imdur, metoprolol, hydralazine - add amlodipine 10mg po daily - goal sbp < 180 - prn labetalol, hydralazine iv for goal. Renal: Acute Kidney Injury - unknown baseline Cr. - trend on BMP -- Strict I/Os FEN/GI: Nausea - Zofran when necessary for nausea - Diabetic diet this a.m. - ICU electrolyte protocol - daily BMP Heme/ID: -Urine culture pending patient received 1 dose of Rocephin in the ED, plan to follow-up culture - daily CBC Endocrine: Hyperglycemia of critical illness Diabetes mellitus -01/25 Begin Levemir 10 units daily, patient continues on high-dose insulin protocol for now. Blood glucose levels greater than 300 -Continue glucose monitoring every 4 hours -- SSI, high dose protocol Prophylaxis: GI Prophylaxis - Pepcid DVT Prophylaxis -- SCDs - SQH Lines: Peripheral IVs providing adequate access at this time. Central line if indicated Dispo: Level 3 Discussed with patient GENERAL LOT ATTENDANT at bedside. Physician Leida Kauffman MD Jan 25, 2017 11:43
[2017-01-25] MEDS ORDERED: POTASSIUM CHLORIDE 25 MEQ EFFERVESCENT TAB PO ONE (12:00)
[2017-01-25] MEDS: INSULIN DETEMIR 100 UNITS/ML VIAL SQ SCH (12:18)
--- NOTE | 2017-01-25 13:27 | MB ---
cc: ASHLEIGH PIÑA M.D. DATE OF CONSULTATION: 01/25/2017 HISTORY OF PRESENT ILLNESS The patient is a 51-year-old woman with the chief complaint of dizziness. She had the onset of symptoms probably at least four days ago and also felt leaning to the left. She came to the hospital with a blood pressure over 200 and was treated with nicardipine. MRI brain is showing a left basal ganglia subacute infarct and probable small meningioma posteriorly, high parietal, I believe left side. Carotid ultrasound is unremarkable. PAST MEDICAL HISTORY She has a history of hypertension but it appears that she does not follow with any doctors or take medications. REVIEW OF SYSTEMS The patient denies headaches. No paresthesias. PHYSICAL EXAMINATION Ocular movements are full and she has nystagmus, which is much more pronounced when she gazed to the left than right. Pupils are about the same size and reactive. I could not see the disks well. No overt facial asymmetry. Her speech appears appropriate. There is no arm drift. [id number] testing was symmetrical. She is obese. She may have minor difficulty with [id number] test using the right leg to go over the right heel to go over the left knee and wright. The reflexes were 1-2+ throughout. Plantar responses flexor. Position sense well-preserved in the distal lower extremities. IMAGING MRI brain was reviewed. LABORATORY The laboratory data includes a white count today 14.0, hemoglobin 12.0, platelets 295, sodium 135, potassium 3.1, creatinine 1.22, BUN 9, GFR 56, glucose 364. ASSESSMENT 1. Small left basal ganglia subacute stroke. 2. Small meningioma, probable left posterior high parietal. 3. Vertigo. 4. Nystagmus. The findings are difficult to be explained on the basis of the small basal ganglia infarct. When I look at the MRI there are some areas of probable ischemic demyelinization, but that appears to be chronic involving the tiffani/brainstem. No obvious suggestion of a true demyelinization disorder. PLAN At this point I will request an MRA head and neck. Continue the aspirin as is in the medical care. I will follow the neurological course. Thank you for asking us to assist in her care. MD NATE Quintana/BT /1:01 PM /1:15 PM
[2017-01-25] MEDS ORDERED: PILL SPLITTER OTHER PRN (13:45)
--- NOTE | 2017-01-25 15:48 | PD.CONS ---
[facility] Service Rehabilitation Medicine Consult Requested By Dr. Napier Reason for Consult Comprehensive rehabilitation evaluation. Primary Care Physician No Primary Care Physician History of Present Illness Agustin Chakraborty is a 51-year-old right-hand dominant female admitted [facility] 01/24/17 with dizziness which began 4 days prior to admission. Head CT was negative for acute abnormality. Brain MRI showed acute/subacute left basal ganglia 9 mm infarct and possible small fall seen meningioma in the posterior parietal area. Carotid ultrasound showed no hemodynamically significant stenosis. MRA is pending. Review of Systems Constitutional: COMPLAINS OF: Fatigue Eyes: DENIES: Diplopia Ears, nose, mouth, throat: DENIES: Throat pain Respiratory: DENIES: Shortness of breath Cardiovascular: DENIES: Chest pain Gastrointestinal: DENIES: Abdominal pain Genitourinary: COMPLAINS OF: Urinary frequency, Urinary incontinence Integumentary: DENIES: Pruritus Hematologic/lymphatic: DENIES: Bruising Immunologic/allergic: DENIES: Urticaria Neurologic: COMPLAINS OF: Headache (Mild), DENIES: Localized weakness, Speech Problems Psychiatric: DENIES: Confusion Past Family Social History Allergies: Coded Allergies: diatrizoate meglumine (Unverified Allergy, Severe, RASH, 01/24/17) gadobenic acid (Unverified Allergy, Severe, RASH, 01/24/17) gadodiamide (Unverified Allergy, Severe, RASH, 01/24/17) gadoteridol (Unverified Allergy, Severe, RASH, 01/24/17) iodine (Unverified Allergy, Severe, RASH, HIVES, 01/24/17) iodixanol (Unverified Allergy, Severe, RASH, 01/24/17) iohexol (Unverified Allergy, Severe, RASH, 01/24/17) potassium iodide (Unverified Allergy, Severe, RASH, HIVES, 01/24/17) povidone-iodine (Unverified Allergy, Severe, RASH, HIVES, 01/24/17) sodium iodide (Unverified Allergy, Severe, RASH, HIVES, 01/24/17) sodium iodide (Unverified Allergy, Severe, RASH, HIVES, 01/24/17) Past Medical History Hypertension History of [place] Past Surgical History None listed Current Medications Current Medications Medications (Trade) Dose Ordered Sig/Fabi Route Start Time Stop Time Status Last Admin (NS Flush) 2 ml UNSCH PRN IVF 01/24/17 18:30 Nicardipine HCl 25 mg/Sodium Chloride 250 ml @ 50 mls/hr TITRATE PRN IV 01/24/17 18:30 01/25/17 01:30 (Trandate Inj) 20 mg Q15M PRN IV PUSH 01/24/17 20:30 (Apresoline Inj) 10 mg Q30M PRN IV PUSH 01/24/17 20:30 01/25/17 14:03 (Mag-Ox) 800 mg UNSCH PRN PO 01/24/17 20:30 Magnesium Sulfate 4 gm/Sodium Chloride 100 ml @ 50 mls/hr UNSCH PRN IV 01/24/17 20:30 Magnesium Sulfate 2 gm/Sodium Chloride 100 ml @ 50 mls/hr UNSCH PRN IV 01/24/17 20:30 Potassium Chloride 100 ml @ 50 mls/hr Q2H PRN IV 01/24/17 20:30 01/25/17 07:05 Potassium Chloride 100 ml @ 50 mls/hr Q2H PRN IV 01/24/17 20:30 Potassium Chloride 100 ml @ 50 mls/hr Q2H PRN IV 01/24/17 20:30 Potassium Chloride 100 ml @ 25 mls/hr UNSCH PRN IV 01/24/17 20:30 (K-Phos) 2,000 mg Q4H PRN PO 01/24/17 20:30 (K-Phos) 2,000 mg UNSCH PRN PO/TUBE 01/24/17 20:30 Potassium Phosphate 30 mmol/ Sodium Chloride 260 ml @ 42 mls/hr UNSCH PRN IV 01/24/17 20:30 Sodium Phosphate 30 mmol/Sodium Chloride 250 ml @ 42 mls/hr UNSCH PRN IV 01/24/17 20:30 (D50w (Vial) Inj) 25 ml UNSCH PRN IV PUSH 01/24/17 20:30 (NovoLIN R SUPPLEMENTAL SCALE) 1 Q4HR SQ 01/25/17 00:00 01/25/17 12:00 Sodium Chloride 1,000 ml @ 84 mls/hr [id number] IV 01/24/17 20:21 01/24/17 20:36 (Zofran Inj) 4 mg Q6H PRN IV PUSH 01/24/17 20:30 01/25/17 05:30 (Duoneb Neb) 1 ampule Q2HR NEB PRN INH 01/24/17 20:30 (Heparin Inj) 5,000 units Q8H SQ 01/24/17 21:00 01/25/17 12:18 Miscellaneous Information 1 Q361D XX 01/24/17 20:30 01/24/17 20:30 (Chlorhexidine 2% Cloth) 3 pack Taper DAILY@04 TOP 01/25/17 04:00 01/21/18 03:59 (Chlorhexidine 2% Cloth) 3 pack UNSCH PRN TOP 01/24/17 20:30 (Kathya-Colace) 1 tab BID PO 01/24/17 21:00 01/24/17 21:08 (Ecotrin Ec) 81 mg DAILY PO 01/25/17 09:00 01/25/17 08:39 (Lasix) 40 mg DAILY PO 01/25/17 09:00 01/25/17 08:41 (Apresoline) 75 mg Q8HR PO 01/24/17 22:00 01/25/17 13:05 (Imdur) 30 mg DAILY@0700 PO 01/24/17 20:30 01/24/17 21:07 (Lopressor) 50 mg BID PO 01/24/17 21:00 01/24/17 21:08 (Norvasc) 10 mg DAILY PO 01/24/17 20:30 01/25/17 08:41 (Levemir Inj) 10 units DAILY SQ 01/25/17 12:00 01/25/17 12:18 (Tylenol) 650 mg Q6HR PRN PO 01/25/17 12:00 (Pepcid) 10 mg Q12HR PO 01/25/17 21:00 (Pill Splitter) 1 ea UNSCH PRN OTHER 01/25/17 13:45 Family History [place] Social History Prior to admission patient was independent with mobility and ADLs. Half pack per day tobacco. Occasional alcohol use. Lives in [place], [place] Exam I&O / VS Vital Signs Date Time Temp Pulse Resp B/P (MAP) Pulse Ox O2 Delivery O2 Flow Rate FiO2 01/25/17 10:00 66 01/25/17 08:00 67 01/25/17 08:00 97.7 67 20 164/84 (110) 100 01/25/17 06:00 116 01/25/17 04:00 81 01/25/17 04:00 98.4 71 22 127/59 (81) 94 01/25/17 02:00 62 01/25/17 01:30 73 137/60 01/25/17 00:00 72 20 156/73 (100) 100 01/25/17 00:00 75 01/24/17 23:30 83 197/89 01/24/17 22:00 72 01/24/17 21:26 98.0 82 12 188/95 (126) 98 01/24/17 21:13 75 173/84 01/24/17 21:12 75 16 173/84 (113) 98 Room Air 01/24/17 21:10 01/24/17 20:36 100 01/24/17 20:29 77 16 190/88 (122) 98 Room Air 01/24/17 20:29 77 186/82 01/24/17 20:17 76 14 186/82 (116) 100 Room Air 01/24/17 19:59 74 16 184/84 (117) 100 Room Air 01/24/17 19:43 70 16 192/88 (122) 100 Room Air 01/24/17 18:54 67 17 218/103 (141) 99 Room Air 01/24/17 18:48 64 16 264/134 (177) 100 Room Air 01/24/17 18:47 63 224/102 01/24/17 17:30 98.0 70 18 238/108 (151) 95 General: No acute distress Respiratory: Lungs CTA, Non-labored respirations, BS equal Gastrointestinal: Positive Bowel Sounds, Non-Distended, Other (obese) Cardiovascular: Normal rate, Regular Rhythm Skin: Other (no rash noted) Musculoskeletal: Swelling Psychiatric: Cooperative, Appropriate mood & affect Orientation: oriented to Self, oriented to Place, oriented to Time, oriented to Situation Neurologic: Cranial Nerves (intact 2 through 12), Pupils (PERRLA), EOM (intact) , Speech Motor: Right Upper Extremity (grossly 5/5), Left Upper Extremity (grossly 5/5) , Right Lower Extremity (grossly 5/5), Left Lower Extremity (grossly 5/5) Sensory Intact to light touch in the upper and lower extremities DTRs: Normal Babinski: Negative Clonus: Negative Assessment and Plan Diagnosis: (1) Dizziness ICD Codes: R42 - Dizziness and giddiness Assessment 1. Left basal ganglia acute/subacute 9 mm infarct 2. Hypertension 3. History of [place] Plan 1. Patient is being mobilized with physical therapy now minimal assistance with transfers and is progressing to gait. Balance is noted to be poor. Continue to mobilize as tolerated 2. Occupational therapy for independence with ADLs 3. Will follow regarding rehabilitation needs while hospitalized and at discharge Thank you for this consult Zara Avila MD Jan 25, 2017 15:48
--- NOTE | 2017-01-25 16:45 | EKG ---
Date Performed: 01/24/2017 Time Performed: 17:42:16 PTAGE: 51 years EKG: Sinus rhythm WITH SINUS ARRHYTHMIA LEFT VENTRICULAR HYPERTROPHY ST changes secondary to LVH vs ischemia Since PREVIOUS TRACING : more pronounced ST changes Cinical correlation requested PREVIOUS TRAC IN05/20/2015 04.54 DOCTOR: Alissa Ledesma Interpretating Date/Time 01/25/2017 16:44:12
--- NOTE | 2017-01-25 17:48 | ECHRPT ---
Indication: CVA/TIA CONCLUSIONS The left ventricular systolic function is hyperdynamic with an estimated ejection fraction in the ra nge of 65- 70%. Severe concentric left ventricular hypertrophy. BP: 127 / 59 HR: 81 Rhythm: Sinus MEASUREMENTS (Male / Female) Normal Values Technical Quality:Good 2D ECHO LV Diastolic Diameter PLAX 3.6 cm 4.2 - 5.9 / 3.9 - 5.3 cm LV Systolic Diameter PLAX 2.2 cm IVS Diastolic Thickness 2.3 cm 0.6 - 1.0 / 0.6 - 0.9 cm LVPW Diastolic Thickness 2.3 cm 0.6 - 1.0 / 0.6 - 0.9 cm LV Relative Wall Thickness 1.3 RV Internal Dim ED PLAX 2.8 cm LVOT Diameter 2.0 cm LA Systolic Diameter LX 3.4 cm 3.0 - 4.0 / 2.7 - 3.8 cm M-MODE Aortic Root Diameter MM 2.6 cm AV Cusp Separation MM 1.5 cm DOPPLER AV Peak Velocity 191.0 cm/s AV Peak Gradient 14.6 mmHg LVOT Peak Velocity 131.0 cm/s LVOT Peak Gradient 6.9 mmHg AV Area Cont Eq pk 2.2 cm MV Area PHT 3.1 cm Mitral E Point Velocity 85.9 cm/s Mitral A Point Velocity 106.0 cm/s Mitral E to A Ratio 0.8 LV E' Lateral Velocity 4.8 cm/s Mitral E to LV E' Lateral Ratio 18.0 LV E' Septal Velocity 5.2 cm/s Mitral E to LV E' Septal Ratio 16.6 PV Peak Velocity 125.0 cm/s PV Peak Gradient 6.3 mmHg FINDINGS LEFT VENTRICLE The left ventricular systolic function is hyperdynamic with an estimated ejection fraction in the ra nge of 65- 70%. Severe concentric left ventricular hypertrophy. No regional wall motion abnormalities are present. RIGHT VENTRICLE Normal right ventricular size and systolic function. LEFT ATRIUM The left atrial size is upper limits of normal. RIGHT ATRIUM The right atrial size is normal. ATRIAL SEPTUM Normal atrial septal thickness without atrial level shunting by limited color doppler interrogation. AORTA The aortic root and proximal ascending aorta are normal in size on limited imaging. MITRAL VALVE Structurally normal mitral valve. No mitral valve stenosis or regurgitation. AORTIC VALVE Trileaflet aortic valve. No aortic valve stenosis or regurgitation. TRICUSPID VALVE Pulmonary arterial systolic pressure could not be estimated due to an insufficient tricuspid valve regurgitation doppler jet for measurement. Structurally normal tricuspid valve. No tricuspid valve stenosis. PULMONARY VALVE The pulmonary valve is not well visualized. VESSELS The inferior vena cava is normal in size. PERICARDIUM No pericardial effusion. Cricket Gonzalez DO (Electronically Signed) Final Date:25 January 2017 17:47
--- NOTE | 2017-01-25 20:30 | PD.CONS ---
History of Present Illness Service Neurosurgery Consult Requested By Dr. Nelson Reason for Consult Left parietal lesion-probable meningioma Primary Care Physician No Primary Care Physician Diagnoses: History of Present Illness 51-year-old female admitted through the emergency room with complaint of approximately 4 days of gait unsteadiness, leaning towards the left, dizziness. Some nausea and vomiting the day prior to admission. No fevers chills. No complaint of pain and weakness numbness in the extremities. No headache. No blurred vision or diplopia. She has been found to have a small left basal ganglia subacute CVA on MRI imaging, without hemorrhage or significant mass effect. Also a small left parietal parafalcine lesion most consistent with meningioma. No seizure activity reported. Review of Systems Constitutional: COMPLAINS OF: Fatigue, Dizziness, DENIES: Fever Eyes: DENIES: Blurred vision, Diplopia Ears, nose, mouth, throat: DENIES: Tinnitus, Hearing loss Respiratory: DENIES: Sputum production, Shortness of breath Cardiovascular: DENIES: Chest pain, Palpitations Gastrointestinal: COMPLAINS OF: Nausea, Vomiting, DENIES: Abdominal pain Genitourinary: DENIES: Urinary incontinence Musculoskeletal: COMPLAINS OF: Joint pain, Neck pain Hematologic/lymphatic: DENIES: Bruising Neurologic: COMPLAINS OF: Abnormal gait, DENIES: Headache, Localized weakness Psychiatric: DENIES: Anxiety Past Family Social History Allergies: Coded Allergies: diatrizoate meglumine (Unverified Allergy, Severe, RASH, 01/24/17) gadobenic acid (Unverified Allergy, Severe, RASH, 01/24/17) gadodiamide (Unverified Allergy, Severe, RASH, 01/24/17) gadoteridol (Unverified Allergy, Severe, RASH, 01/24/17) iodine (Unverified Allergy, Severe, RASH, HIVES, 01/24/17) iodixanol (Unverified Allergy, Severe, RASH, 01/24/17) iohexol (Unverified Allergy, Severe, RASH, 01/24/17) potassium iodide (Unverified Allergy, Severe, RASH, HIVES, 01/24/17) povidone-iodine (Unverified Allergy, Severe, RASH, HIVES, 01/24/17) sodium iodide (Unverified Allergy, Severe, RASH, HIVES, 01/24/17) sodium iodide (Unverified Allergy, Severe, RASH, HIVES, 01/24/17) Past Medical History Hypertension Coronary artery disease Previous myocardial infarction Diabetes Past Surgical History Cardiac catheterization Reported Medications Reported Meds & Active Scripts Active Reported Metformin (Metformin HCl) 1,000 Mg Tab 1,000 Mg PO BID With meals Potassium Chloride ER (Potassium Chloride) 20 Meq Tab 20 Meq PO DAILY Metoprolol Tartrate 50 Mg Tab 50 Mg PO BID Isosorbide Mononitrate ER (Isosorbide Mononitrate) 30 Mg Betzy 30 Mg PO DAILY Hydralazine HCl 50 Mg Tablet 75 Mg PO Q8HR Lasix (Furosemide) 40 Mg Tab 40 Mg PO DAILY Aspirin Adult Low Strength (Aspirin) 81 Mg Tabdr 81 Mg PO DAILY Family History Positive cardiac disease-heart attack Social History Smokes one half pack cigarettes a day Occasional alcohol Physical Exam Vital Signs Vital Signs Date Time Temp Pulse Resp B/P (MAP) Pulse Ox O2 Delivery O2 Flow Rate FiO2 01/25/17 18:00 79 01/25/17 17:56 87 197/88 01/25/17 16:00 79 01/25/17 16:00 97.9 79 22 180/83 (115) 100 01/25/17 14:00 79 01/25/17 12:00 63 01/25/17 12:00 98.0 63 24 208/88 (128) 100 01/25/17 10:00 66 01/25/17 08:00 67 01/25/17 08:00 97.7 67 20 164/84 (110) 100 01/25/17 06:00 116 01/25/17 04:00 81 01/25/17 04:00 98.4 71 22 127/59 (81) 94 01/25/17 02:00 62 01/25/17 01:30 73 137/60 01/25/17 00:00 72 20 156/73 (100) 100 01/25/17 00:00 75 01/24/17 23:30 83 197/89 01/24/17 22:00 72 01/24/17 21:26 98.0 82 12 188/95 (126) 98 01/24/17 21:13 75 173/84 01/24/17 21:12 75 16 173/84 (113) 98 Room Air 01/24/17 21:10 01/24/17 20:36 100 01/24/17 20:29 77 16 190/88 (122) 98 Room Air 01/24/17 20:29 77 186/82 Physical Exam GENERAL: This is a well-nourished, significantly obese lady in no apparent distress SKIN: No abrasions, contusion, rash noted. Skin warm and dry. HEAD: Atraumatic. Normocephalic. No temporal or scalp tenderness. EYES: Sclerae are clear and nonicteric ENT: No facial edema or ecchymosis. No periorbital edema. NECK: Trachea midline. Mild to moderate cervical spine tenderness. No nuchal rigidity CARDIOVASCULAR: Regular rate and rhythm without murmurs, gallops, or rubs. RESPIRATORY: Clear to auscultation. Breath sounds equal bilaterally. No wheezes , rales, or rhonchi. GASTROINTESTINAL: Abdomen soft, non-tender, nondistended. No hepato-splenomegaly , or palpable masses. No guarding. MUSCULOSKELETAL: Extremities without cyanosis, or edema. No joint tenderness, or edema noted. No calf tenderness. Dorsalis pedis pulses 2+ bilateral NEUROLOGICAL: Mild lethargy Oriented X person, month, hospital Speech is clear Moderate slowing of speech and thought processes Conversant and appropriate Follow simple commands well Answers questions appropriately Appears to have diminished judgment and insight Recent and remote memory are mildly impaired No evidence of anxiety or depression Pupils are equal and reactive to accommodation. Extra-ocular movements, visual zhang to confrontation, facial sensorimotor, tongue, palate, sternocleidomastoid testing, hearing to finger rub testing, and bilateral shoulder shrug are all intact. Sensation is intact to light touch in all extremities Strength normal major flexion and extension groups all extremities Victor Hugo's absent bilaterally No ankle clonus Plantar responses absent bilateral Fine motor movements moderately diminished upper extremities Laboratory Laboratory Tests Test 01/24/17 21:30 01/25/17 05:34 01/25/17 12:04 Nasal Screen MRSA (PCR) MRSA NOT DETECTED White Blood Count 14.0 Red Blood Count 4.63 Hemoglobin 12.0 Hematocrit 37.9 Mean Corpuscular Volume 81.8 Mean Corpuscular Hemoglobin 25.8 Mean Corpuscular Hemoglobin Concent 31.5 Red Cell Distribution Width 18.0 Platelet Count 295 Mean Platelet Volume 10.3 Blood Urea Nitrogen 9 Creatinine 1.22 Random Glucose 364 Calcium Level 8.6 Sodium Level 135 Potassium Level 3.1 Chloride Level 100 Carbon Dioxide Level 25.3 Anion Gap 10 Estimat Glomerular Filtration Rate 56 Troponin I 0.08 Date/Time Source Procedure Growth Status 01/24/17 18:51 Urine Catheterized Urine Urine Culture - Preliminary IMMATURE GROWTH - REINCUBATE Resulted Result Diagram: 01/25/17 0534 01/25/17 0534 Imaging 01/24/17 CT scan had an MRI brain images reviewed by the undersigned. Agree with findings as noted below: Carotid Artery Ultrasound 01/25/17 0000 Signed Impressions: Service Date/Time: Wednesday, January 25, 2017 07:36 - CONCLUSION: Mild plaque was slightly elevated ratios but no hemodynamically significant stenosis. Lorenzo Meade MD Head CT 01/24/17 1821 Signed Impressions: Service Date/Time: January 19:24 - CONCLUSION: No acute intracranial abnormality demonstrated. An apparent old, small left basal ganglia lacunar infarct. Jalen Reyes MD Brain MRI 01/24/17 0000 Signed Impressions: Service Date/Time: January 22:07 - CONCLUSION: 1. 9 mm acute or subacute infarct of the left basal ganglia. 2. Mild chronic periventricular white matter changes. 3. Possibly a small perifalcine meningioma posteriorly of the parietal lobe. Jalen Reyes MD Assessment and Plan Assessment and Plan Impression: 1. Small left parietal parafalcine lesion most consistent with meningioma. No significant mass effect. Appears asymptomatic at this time 2. Left basal ganglia CVA without hemorrhage 3. Diabetes 4. Hypertension Recommendations: Findings were discussed with the patient as well as with her daughter in the medical intensive care unit today. Have advised conservative treatment and observation for the apparent small left parietal parafalcine meningioma. Signs and symptoms to watch for have been fully discussed. Our office will contact the patient to arrange for follow-up MRI within the next 6 months. She will otherwise notify her physicians or come back to the hospital if any new symptoms occur. Christopher Luu MD Jan 25, 2017 20:30
--- NOTE | 2017-01-25 21:53 | RADRPT ---
EXAM DATE/TIME: 01/25/2017 20:12 [facility] COMPARISON: No previous studies available for comparison. INDICATIONS : Dizziness. CONTRAST: 20 cc Omniscan (gadodiamide) IV MEDICAL HISTORY : Diabetes mellitus type 2. Hypertension. SURGICAL HISTORY : section. ENCOUNTER: Initial ACUITY: 1 day PAIN SCORE: 0/10 LOCATION: neck Percent stenosis is calculated using the diameter of the stenotic region over the diameter of the nor mal distal internal carotid artery. TECHNIQUE: Bolus infused MRA of the extracranial circulation was performed using a neurovascular coil. Post pro cessing was performed including rotating subvolume maximum intensity projections of each carotid milton ry, rotating full volume maximum intensity projections of both carotid arteries, sagittal and coronal sliding thin slab reformations of each carotid artery, and left oblique sliding thin slab reformatio n through the aortic arch to include the origin of the arch branch vessels. FINDINGS: AORTIC ARCH: There is a bovine arch. No evidence of ostial narrowing. RIGHT CAROTID: The common carotid artery is intact. The carotid bulb has a normal configuration without ulceration or narrowing. The internal carotid artery lumen is smooth without stenosis. The external carotid ar mario demonstrates probable severe stenosis proximally. LEFT CAROTID: The common carotid artery is intact. The carotid bulb has a normal configuration without ulceration or narrowing. The internal carotid artery lumen is smooth without stenosis. The external carotid ar mario demonstrates probable severe stenosis proximally. VERTEBRALS: The vertebral arteries have a symmetric diameter. No stenotic lesions are seen. CONCLUSION: 1. No evidence of internal carotid artery stenosis. 2. Probable severe stenoses involving the proximal external carotid arteries bilaterally. Tong Gallagher MD on January 25, 2017 at 21:50 Board Certified Radiologist. This report was verified electronically.
--- NOTE | 2017-01-25 22:02 | RADRPT ---
EXAM DATE/TIME: 01/25/2017 20:12 [facility] COMPARISON: MRI BRAIN W/O CONTRAST, January 24, 2017, 22:07. INDICATIONS : Vertigo. MEDICAL HISTORY : Hypertension. Diabetes mellitus type 2. SURGICAL HISTORY : section. ENCOUNTER: Subsequent ACUITY: 2 day PAIN SCORE: 3/10 LOCATION: cranial Please note a normal MRA of the brain does not entirely exclude the possibility of a small aneurysm, nor the possibility of distal intracranial vessel disease. TECHNIQUE: 3D time of flight MRA was performed. Source images, multiplanar STS MIP, and 3D volume MIP reconstru ctions were reviewed. FINDINGS: Short segment moderate focal stenoses are noted within the proximal portion of the posterior cerebral arteries bilaterally. There is also a short segment mild focal stenosis involving the right middle cerebral artery proximal to the bifurcation. No occlusion or aneurysm is noted. The upper cervical, petrous, cavernous and supraclinoid internal carotid arteries are patent. The A1 segments are paten t bilaterally. The remainder of the middle cerebral arteries are patent bilaterally. The anterior c erebral arteries are also patent without significant stenosis or occlusion. The basilar artery and u ppermost portions of the vertebral arteries are patent without significant stenoses or occlusion. No aneurysm formation is noted. CONCLUSION: 1. Focal short segment moderate stenoses involving the proximal portions of the posterior cerebral a rteries bilaterally. 2. Mild focal segmental stenosis involving the right middle cerebral artery proximal to the bifurcat ion. Tong Gallagher MD on January 25, 2017 at 21:47 Board Certified Radiologist. This report was verified electronically.
[2017-01-25] MEDS ORDERED: GADODIAMIDE PF 287 MG/ML 20 ML VIAL (for RAD MRI) IVCONTRAST ONE (22:48)
[2017-01-26] VITALS (37 sets, daily range): BP systolic 148–217; BP diastolic 67–110; PULSE 59–76; RESP 14–18; TEMP 98–99.7; O2SAT 97–100
[2017-01-26] MEDS: niCARdipine INJ 25 MG in SODIUM CHLOR 0.9% 250 ML INJ 240 ML IV PRN (02:00)
[2017-01-26] MEDS: CHLORHEXIDINE GLUCONATE 2 % 1 PACK (2 CLOTHS) TOP SCH (04:00)
[2017-01-26] MEDS: INSULIN NovoLIN REGULAR SUPPLEMENTAL SCALE SQ SCH ×6 (04:00→20:00)
[2017-01-26] MEDS: HEPARIN SODIUM - SQ 10,000 UNITS/ML VIAL SQ SCH ×3 (05:00→20:45)
[2017-01-26 05:18] LABS: HEMATOCRIT 38.6 % (35.0-46.0); MEAN CELL VOLUME 80.6 FL (80.0-100.0); MEAN CORPUSCULAR HEMOGLOBIN 25.2 PG (27.0-34.0); MEAN CORPUSCULAR HGB CONC 31.2 % (32.0-36.0); PLATELET COUNT 299 TH/MM3 (150-450); RED BLOOD COUNT 4.79 MIL/MM3 (4.00-5.30); RED CELL DISTRIBUTION WIDTH 18.2 % (11.6-17.2); REVIEW FLAG FINAL; WHITE BLOOD COUNT 13.6 TH/MM3 (4.0-11.0)
[2017-01-26 05:49] LABS: ANION GAP 7 MEQ/L (5-15); BICARBONATE 27.6 MEQ/L (21.0-32.0); BLOOD UREA NITROGEN 8 MG/DL (7-18); CHLORIDE 104 MEQ/L (98-107); GLOMERULAR FILTRATION RATE 66 ML/MIN (>89); POTASSIUM 3.3 MEQ/L (3.5-5.1); SODIUM (NA) 139 MEQ/L (136-145)
[2017-01-26 05:51] LABS: HDL CHOLESTEROL 44.2 MG/DL (40.0-60.0); LDL CHOLESTEROL 69 MG/DL (0-99)
[2017-01-26] MEDS: hydrALAZINE HCL 25 MG TAB PO SCH (06:00)
[2017-01-26] MEDS: ISOSORBIDE MONONITRATE 30 MG TAB PO SCH (06:44)
[2017-01-26] MEDS: SODIUM CHLOR 0.9% 1000 ML INJ 1,000 ML IV SCH ×2 (08:06→20:01)
--- NOTE | 2017-01-26 08:55 | HHI.CCPN ---
Subjective Remarks/Hospital Course The proximally 4 days of worsening dizziness. Patient states she feels like she is leaning to her left side. She has never had these symptoms before. Her only other symptom is nausea, and she did vomit once yesterday, but not since. Her nausea is not related to food. It is intermittent, but currently present. She does have a history of hypertension, but she states that she thinks that it' s well-controlled on medicine. In the emergency department she had a systolic blood pressure over 230. She was started on a nicardipine infusion. Noncontrasted head CT was negative. Her creatinine is elevated at 1.34 with an unknown baseline. She denies chest pain, shortness of breath, fever, chills, vomiting, diarrhea, constipation. Subjective: 01/25: The patient does complains of persistent nausea, refusing anti-emetic Zofran. Patient is alert and oriented, denies pain. Blood pressure well controlled with oral antihypertensive medications. Nicardipine discontinued early a.m.. Patient had episode of A. fib RVR received Cardizem, with resolution of symptoms. The patient continues to have elevated glucose levels and currently remains on high-dose insulin protocol. 01/26: Resolution of nausea over the last 12 hours. Patient continues on nicardipine infusion currently at 2 mg/hr. yesterday the patient refused hydralazine, stating that it makes her tired and sleepy, and has been removed from medication regimen. The patient underwent MRA of the brain and the neck yesterday,with plans for outpatient MRI in 6 months being followed by neurology. Objective Vital Signs Date Time Temp Pulse Resp B/P (MAP) Pulse Ox O2 Delivery O2 Flow Rate FiO2 01/26/17 06:00 74 01/26/17 04:00 98.0 18 188/86 (120) 98 01/24/17 21:12 Room Air Result Diagram: 01/26/17 0440 01/26/17 0440 Imaging Last [address] 01/24/17 1821 Signed Impressions: Service Date/Time: January 19:24 - CONCLUSION: No acute intracranial abnormality demonstrated. An apparent old, small left basal ganglia lacunar infarct. Jalen Reyes MD Objective Remarks GENERAL: Morbidly obese middle-aged female, lying in bed, in no acute distress HEENT: Normocephalic. Atraumatic. Pupils equal, round, reactive, conjugate. Mucous membranes are moist NECK: Trachea is midline. There is no JVD. CHEST: Equal chest rise. Clear to auscultation bilaterally. No sensory muscle movement CARDIOVASCULAR: Normal rate, regular rhythm. Systolic blood pressure is 1120's on Nicardipine ABDOMEN: Soft, nontender, nondistended. No guarding. MUSCULOSKELETAL: Pulses 2+. No peripheral edema. NEUROLOGICAL: RASS 0. GCS 15. No focal deficits. Muscle skeletal strength 5/ 5 in all 4 extremities. Sensation grossly intact. Cranial nerves II through XII grossly intact A/P Assessment and Plan Assessment: 51yF with Hypertensive Urgency and dizziness. Hypertension and dizziness could represent posterior fossa CVA, so we will proceed with MRI brain. If this is negative, then Hypertensive urgency will be treated with iv nicardipine infusion and PO meds to control blood pressure and transition her back to an oral regimen with better control. For now, she remains critically ill with symptomatic hypertensive urgency, possible emergency if she has ongoing CVA. Plan by systems: Neurologic: Dizziness Subacute left basal ganglia infarct Meningioma External Carotid stenosis Vertigo - 01/25 MRI-left basal ganglion subacute infarct, small meningioma - frequent neuro checks - avoid long-acting sedating meds -01/24 MRI revealed a 9 mm subacute or basal ganglia, and possible meningioma of the parietal lobe -Neurology, and neurosurgery following-plan for repeat MRI on outpatient basis in 6 months -01/25-MRA brain moderate stenosis proximal portions posterior cerebral arteries. All stenosis right MCA proximal to bifurcation -01/26-MRA neck-severe stenosis proximal external carotids bilaterally Respiratory: - wean o2 for spo2 > 92% -No respiratory compromise patient currently on room air Cardiovascular: Hypertensive Urgency - Continue home meds: imdur, metoprolol, -Increase metoprolol to 50 mg 3 times a day -Hydralazine discontinued - add amlodipine 10mg po daily - goal sbp < 180 - prn labetalol, IV for goal. Renal: Acute Kidney Injury - unknown baseline Cr. - trend on BMP -- Strict I/Os FEN/GI: Nausea - Zofran when necessary for nausea - Diabetic diet this a.m. - ICU electrolyte protocol - daily BMP Heme/ID: -Urine culture pending patient received 1 dose of Rocephin in the ED, plan to follow-up culture - daily CBC Endocrine: Hyperglycemia of critical illness Diabetes mellitus -01/25 Begin Levemir 10 units daily, patient continues on high-dose insulin protocol for now. Blood glucose levels greater than 300 -Continue glucose monitoring every 4 hours -- SSI, high dose protocol MSK -Evaluated by rehabilitation Dr. Avila -PT evaluation and treat as tolerated Prophylaxis: GI Prophylaxis - Pepcid DVT Prophylaxis -- SCDs - SQH Lines: Peripheral IVs providing adequate access at this time. Central line if indicated Dispo: Level 3 Discussed with patient [employer] at bedside. Physician Leida Kauffman MD Jan 26, 2017 08:55
[2017-01-26] MEDS: METOPROLOL TARTRATE 50 MG TAB PO SCH ×3 (09:47→22:00)
[2017-01-26] MEDS: DOCUSATE SODIUM 50 MG/SENNA 8.6 MG TAB PO SCH ×2 (09:47→20:45)
[2017-01-26] MEDS: ASPIRIN EC 81 MG TABEC PO SCH (09:47)
[2017-01-26] MEDS: FUROSEMIDE 40 MG TAB PO SCH (09:48)
[2017-01-26] MEDS: INSULIN DETEMIR 100 UNITS/ML VIAL SQ SCH (09:48)
[2017-01-26] MEDS: FAMOTIDINE 20 MG TAB PO SCH ×2 (09:48→20:45)
[2017-01-26] MEDS: ACETAMINOPHEN 325 MG TAB PO PRN (11:26)
[2017-01-26] MEDS: LABETALOL HCL 100 MG/20 ML VIAL IV PUSH PRN ×2 (20:44→21:10)
[2017-01-27] VITALS (12 sets, daily range): BP systolic 132–202; BP diastolic 79–98; PULSE 59–66; RESP 14–18; TEMP 98.2–99; O2SAT 100
[2017-01-27] MEDS: CHLORHEXIDINE GLUCONATE 2 % 1 PACK (2 CLOTHS) TOP SCH (04:00)
[2017-01-27] MEDS: INSULIN NovoLIN REGULAR SUPPLEMENTAL SCALE SQ SCH ×6 (04:00→21:57)
[2017-01-27] MEDS: HEPARIN SODIUM - SQ 10,000 UNITS/ML VIAL SQ SCH ×3 (05:22→21:45)
[2017-01-27] MEDS: METOPROLOL TARTRATE 50 MG TAB PO SCH ×2 (05:23→21:45)
--- NOTE | 2017-01-27 08:33 | HHI.PR ---
Review/Management Daily Summary 01/27 much improved no dizziness today mri/a noted continue medicine care office f/u in 2 weeks post d/c Subjective Subjective Comments No acute neuro events reported No headache Active Medications Current Medications Medications (Trade) Dose Ordered Sig/Fabi Route Start Time Stop Time Status Last Admin (NS Flush) 2 ml UNSCH PRN IVF 01/24/17 18:30 Nicardipine HCl 25 mg/Sodium Chloride 250 ml @ 50 mls/hr TITRATE PRN IV 01/24/17 18:30 01/26/17 02:00 (Trandate Inj) 20 mg Q15M PRN IV PUSH 01/24/17 20:30 01/26/17 21:10 (Mag-Ox) 800 mg UNSCH PRN PO 01/24/17 20:30 Magnesium Sulfate 4 gm/Sodium Chloride 100 ml @ 50 mls/hr UNSCH PRN IV 01/24/17 20:30 Magnesium Sulfate 2 gm/Sodium Chloride 100 ml @ 50 mls/hr UNSCH PRN IV 01/24/17 20:30 Potassium Chloride 100 ml @ 50 mls/hr Q2H PRN IV 01/24/17 20:30 01/25/17 07:05 Potassium Chloride 100 ml @ 50 mls/hr Q2H PRN IV 01/24/17 20:30 Potassium Chloride 100 ml @ 50 mls/hr Q2H PRN IV 01/24/17 20:30 Potassium Chloride 100 ml @ 25 mls/hr UNSCH PRN IV 01/24/17 20:30 (K-Phos) 2,000 mg Q4H PRN PO 01/24/17 20:30 (K-Phos) 2,000 mg UNSCH PRN PO/TUBE 01/24/17 20:30 Potassium Phosphate 30 mmol/ Sodium Chloride 260 ml @ 42 mls/hr UNSCH PRN IV 01/24/17 20:30 Sodium Phosphate 30 mmol/Sodium Chloride 250 ml @ 42 mls/hr UNSCH PRN IV 01/24/17 20:30 (D50w (Vial) Inj) 25 ml UNSCH PRN IV PUSH 01/24/17 20:30 (NovoLIN R SUPPLEMENTAL SCALE) 1 Q4HR SQ 01/25/17 00:00 01/26/17 16:00 Sodium Chloride 1,000 ml @ 84 mls/hr [id number] IV 01/24/17 20:21 01/26/17 08:06 (Zofran Inj) 4 mg Q6H PRN IV PUSH 01/24/17 20:30 01/25/17 15:52 (Duoneb Neb) 1 ampule Q2HR NEB PRN INH 01/24/17 20:30 (Heparin Inj) 5,000 units Q8H SQ 01/24/17 21:00 01/27/17 05:22 Miscellaneous Information 1 Q361D XX 01/24/17 20:30 01/24/17 20:30 (Chlorhexidine 2% Cloth) 3 pack Taper DAILY@04 TOP 01/25/17 04:00 01/21/18 03:59 01/27/17 04:00 (Chlorhexidine 2% Cloth) 3 pack UNSCH PRN TOP 01/24/17 20:30 (Kathya-Colace) 1 tab BID PO 01/24/17 21:00 01/26/17 20:45 (Ecotrin Ec) 81 mg DAILY PO 01/25/17 09:00 01/26/17 09:47 (Lasix) 40 mg DAILY PO 01/25/17 09:00 01/26/17 09:48 (Imdur) 30 mg DAILY@0700 PO 01/24/17 20:30 01/26/17 06:44 (Norvasc) 10 mg DAILY PO 01/24/17 20:30 01/26/17 09:47 (Levemir Inj) 10 units DAILY SQ 01/25/17 12:00 01/26/17 09:48 (Tylenol) 650 mg Q6HR PRN PO 01/25/17 12:00 01/26/17 11:26 (Pepcid) 10 mg Q12HR PO 01/25/17 21:00 01/26/17 20:45 (Pill Splitter) 1 ea UNSCH PRN OTHER 01/25/17 13:45 (Lopressor) 50 mg Q8HR PO 01/26/17 09:20 01/27/17 05:23 Allergies Allergies Coded Allergies diatrizoate meglumine (Unverified Allergy, Severe, RASH, 01/24/17) gadobenic acid (Unverified Allergy, Severe, RASH, 01/24/17) gadodiamide (Unverified Allergy, Severe, RASH, 01/24/17) gadoteridol (Unverified Allergy, Severe, RASH, 01/24/17) iodine (Unverified Allergy, Severe, RASH, HIVES, 01/24/17) iodixanol (Unverified Allergy, Severe, RASH, 01/24/17) iohexol (Unverified Allergy, Severe, RASH, 01/24/17) potassium iodide (Unverified Allergy, Severe, RASH, HIVES, 01/24/17) povidone-iodine (Unverified Allergy, Severe, RASH, HIVES, 01/24/17) sodium iodide (Unverified Allergy, Severe, RASH, HIVES, 01/24/17) sodium iodide (Unverified Allergy, Severe, RASH, HIVES, 01/24/17) Exam I&O / VS Vital Signs Date Time Temp Pulse Resp B/P (MAP) Pulse Ox O2 Delivery O2 Flow Rate FiO2 01/27/17 06:00 63 01/27/17 04:00 59 01/27/17 04:00 98.4 59 18 192/88 (122) 100 01/27/17 02:00 59 01/27/17 00:00 59 01/27/17 00:00 98.7 59 18 162/79 (106) 100 01/26/17 22:00 63 01/26/17 20:00 68 01/26/17 20:00 99.7 68 217/101 (139) 100 01/26/17 18:00 61 180/71 (107) 100 01/26/17 17:50 65 188/87 (120) 99 01/26/17 17:31 68 164/72 (102) 100 01/26/17 17:15 66 183/87 (119) 100 01/26/17 17:00 73 14 170/85 (113) 98 01/26/17 16:45 67 168/77 (107) 100 01/26/17 16:30 67 148/67 (94) 100 01/26/17 16:15 64 151/67 (95) 98 01/26/17 16:00 62 154/77 (102) 97 01/26/17 15:45 62 149/73 (98) 98 01/26/17 15:30 66 171/77 (108) 98 01/26/17 15:15 63 158/68 (98) 100 01/26/17 15:00 62 163/78 (106) 97 01/26/17 14:16 69 156/110 (125) 99 01/26/17 14:00 65 159/84 (109) 100 01/26/17 13:45 67 159/80 (106) 97 01/26/17 13:30 62 156/74 (101) 98 01/26/17 13:15 62 161/83 (109) 97 01/26/17 13:00 61 157/78 (104) 99 01/26/17 12:59 61 165/81 (109) 100 01/26/17 12:00 76 01/26/17 12:00 61 16 192/87 (122) 100 01/26/17 11:59 59 194/90 (124) 100 01/26/17 11:22 61 209/93 (131) 100 01/26/17 11:00 63 197/92 (127) 100 01/26/17 10:30 67 174/81 (112) 100 01/26/17 10:01 75 169/77 (107) 100 01/26/17 10:00 76 01/26/17 09:30 67 186/88 (120) 99 01/26/17 09:30 67 186/88 (120) 99 01/26/17 09:00 66 178/79 (112) 99 Respiratory: Lungs CTA, Non-labored respirations, BS equal Cardiology: Normal rate, Regular Rhythm Musculoskeletal: Swelling Objective Micro and Labs Date/Time Source Procedure Growth Status 01/24/17 18:51 Urine Catheterized Urine Urine Culture - Final 50-100,000 CFU/ML MIXED GRAM POSITIVE... Complete Deven Carroll MD Jan 27, 2017 08:33
[2017-01-27] MEDS: INSULIN DETEMIR 100 UNITS/ML VIAL SQ SCH (09:00)
[2017-01-27] MEDS: FAMOTIDINE 20 MG TAB PO SCH ×2 (10:08→21:44)
[2017-01-27] MEDS: FUROSEMIDE 40 MG TAB PO SCH (10:08)
[2017-01-27] MEDS: DOCUSATE SODIUM 50 MG/SENNA 8.6 MG TAB PO SCH ×2 (10:09→21:45)
[2017-01-27] MEDS: ASPIRIN EC 81 MG TABEC PO SCH (10:09)
[2017-01-27] MEDS: ISOSORBIDE MONONITRATE 30 MG TAB PO SCH (10:09)
[2017-01-27 11:40] LABS: HEMOGLOBIN A1a 1.3 %; HEMOGLOBIN Ao 75.5 %; HEMOGLOBIN F 1.9 %; HEMOGLOBIN LA1C 2.1 %; HEMOGLOBIN P3 4.4 %
[2017-01-27 12:43] LABS: HEMATOCRIT 42.9 % (35.0-46.0); MEAN CELL VOLUME 84.2 FL (80.0-100.0); MEAN CORPUSCULAR HEMOGLOBIN 25.7 PG (27.0-34.0); MEAN CORPUSCULAR HGB CONC 30.5 % (32.0-36.0); PLATELET COUNT 270 TH/MM3 (150-450); RED BLOOD COUNT 5.09 MIL/MM3 (4.00-5.30); RED CELL DISTRIBUTION WIDTH 18.4 % (11.6-17.2); REVIEW FLAG FINAL
[2017-01-27 13:08] LABS: BICARBONATE 26.6 MEQ/L (21.0-32.0); POTASSIUM 3.3 MEQ/L (3.5-5.1)
--- NOTE | 2017-01-27 19:24 | HHI.CCPN ---
Subjective Remarks/Hospital Course The proximally 4 days of worsening dizziness. Patient states she feels like she is leaning to her left side. She has never had these symptoms before. Her only other symptom is nausea, and she did vomit once yesterday, but not since. Her nausea is not related to food. It is intermittent, but currently present. She does have a history of hypertension, but she states that she thinks that it' s well-controlled on medicine. In the emergency department she had a systolic blood pressure over 230. She was started on a nicardipine infusion. Noncontrasted head CT was negative. Her creatinine is elevated at 1.34 with an unknown baseline. She denies chest pain, shortness of breath, fever, chills, vomiting, diarrhea, constipation. Subjective: 01/25: The patient does complains of persistent nausea, refusing anti-emetic Zofran. Patient is alert and oriented, denies pain. Blood pressure well controlled with oral antihypertensive medications. Nicardipine discontinued early a.m.. Patient had episode of A. fib RVR received Cardizem, with resolution of symptoms. The patient continues to have elevated glucose levels and currently remains on high-dose insulin protocol. 01/26: Resolution of nausea over the last 12 hours. Patient continues on nicardipine infusion currently at 2 mg/hr. yesterday the patient refused hydralazine, stating that it makes her tired and sleepy, and has been removed from medication regimen. The patient underwent MRA of the brain and the neck yesterday,with plans for outpatient MRI in 6 months being followed by neurology. 01/27: No acute events overnight. Nicardipine infusion has been off for the last 24 hours. Stylet blood pressure hovers in the 180s requiring a dose of labetalol. Metoprolol increased to 100 mg every 8 hours. The patient is tolerating a diet. Objective Vital Signs Date Time Temp Pulse Resp B/P (MAP) Pulse Ox O2 Delivery O2 Flow Rate FiO2 01/27/17 06:00 63 01/27/17 04:00 98.4 18 192/88 (122) 100 01/24/17 21:12 Room Air Intake and Output 01/27/17 01/27/17 01/28/17 08:00 16:00 00:00 Intake Total 480 ml Balance 480 ml Result Diagram: 01/27/17 1158 01/27/17 1158 Imaging Last [address] 01/24/17 1821 Signed Impressions: Service Date/Time: , January 24, 2017 19:24 - CONCLUSION: No acute intracranial abnormality demonstrated. An apparent old, small left basal ganglia lacunar infarct. Jalen Reyes MD Objective Remarks GENERAL: Morbidly obese middle-aged female, lying in bed, in no acute distress HEENT: Normocephalic. Atraumatic. Pupils equal, round, reactive, conjugate. Mucous membranes are moist NECK: Trachea is midline. There is no JVD. CHEST: Equal chest rise. Clear to auscultation bilaterally. No sensory muscle movement CARDIOVASCULAR: Normal rate, regular rhythm. Systolic blood pressure is 1120's on Nicardipine ABDOMEN: Soft, nontender, nondistended. No guarding. MUSCULOSKELETAL: Pulses 2+. No peripheral edema. NEUROLOGICAL: RASS 0. GCS 15. No focal deficits. Muscle skeletal strength 5/ 5 in all 4 extremities. Sensation grossly intact. Cranial nerves II through XII grossly intact A/P Assessment and Plan Assessment: 51yF with Hypertensive Urgency and dizziness. Hypertension and dizziness could represent posterior fossa CVA, so we will proceed with MRI brain. If this is negative, then Hypertensive urgency will be treated with iv nicardipine infusion and PO meds to control blood pressure and transition her back to an oral regimen with better control. For now, she remains critically ill with symptomatic hypertensive urgency, possible emergency if she has ongoing CVA. Plan by systems: Neurologic: Dizziness Subacute left basal ganglia infarct Meningioma External Carotid stenosis Vertigo - 01/25 MRI-left basal ganglion subacute infarct, small meningioma - frequent neuro checks - avoid long-acting sedating meds -01/24 MRI revealed a 9 mm subacute or basal ganglia, and possible meningioma of the parietal lobe -Neurology, and neurosurgery following-plan for repeat MRI on outpatient basis in 6 months -01/25-MRA brain moderate stenosis proximal portions posterior cerebral arteries. stenosis right MCA proximal to bifurcation -01/26-MRA neck-severe stenosis proximal external carotids bilaterally Respiratory: - wean o2 for spo2 > 92% -No respiratory compromise patient currently on room air Cardiovascular: Hypertensive Urgency - Continue home meds: imdur, metoprolol, -Will Increase metoprolol to 100 mg 3 times a day-SBP last 24 hours 180's-190's requiring PRN dosing -Hydralazine discontinued - add amlodipine 10mg po daily - goal sbp < 180, - prn labetalol, IV for goal. Renal: Acute Kidney Injury - unknown baseline Cr. - trend on BMP -- Strict I/Os FEN/GI: Nausea - Zofran when necessary for nausea - Diabetic diet this a.m. - ICU electrolyte protocol - daily BMP Heme/ID: -Urine culture pending patient received 1 dose of Rocephin in the ED, plan to follow-up culture - daily CBC Endocrine: Hyperglycemia of critical illness Diabetes mellitus -01/25 Begin Levemir 10 units daily, patient continues on high-dose insulin protocol for now. Blood glucose levels greater than 300 -Continue glucose monitoring every 4 hours -- SSI, high dose protocol MSK -Evaluated by rehabilitation Dr. Avila -PT evaluation and treat as tolerated Prophylaxis: GI Prophylaxis - Pepcid DVT Prophylaxis -- SCDs - SQH Lines: Peripheral IVs providing adequate access at this time. Central line if indicated Dispo: Level 2 Discussed with patient and HONING MACHINE OPERATOR at bedside. Plan transfer to [facility] in a.m. Plan transfer to [facility] neurology floor. Physician Leida Kauffman MD Jan 27, 2017 19:24
[2017-01-27] MEDS: LABETALOL HCL 100 MG/20 ML VIAL IV PUSH PRN ×6 (19:31→23:14)
[2017-01-28] VITALS (8 sets, daily range): BP systolic 123–195; BP diastolic 67–92; PULSE 54–58; RESP 18–20; TEMP 97.4–98.4; O2SAT 98–100
[2017-01-28] MEDS: CHLORHEXIDINE GLUCONATE 2 % 1 PACK (2 CLOTHS) TOP SCH (04:00)
[2017-01-28] MEDS: HEPARIN SODIUM - SQ 10,000 UNITS/ML VIAL SQ SCH ×3 (05:32→21:06)
[2017-01-28] MEDS: METOPROLOL TARTRATE 50 MG TAB PO SCH ×3 (05:32→21:06)
[2017-01-28] MEDS: ISOSORBIDE MONONITRATE 30 MG TAB PO SCH (07:09)
[2017-01-28] MEDS: LABETALOL HCL 100 MG/20 ML VIAL IV PUSH PRN ×3 (07:09→12:43)
[2017-01-28] MEDS: INSULIN NovoLIN REGULAR SUPPLEMENTAL SCALE SQ SCH ×4 (08:00→21:00)
[2017-01-28] MEDS: ASPIRIN EC 81 MG TABEC PO SCH (08:41)
[2017-01-28] MEDS: DOCUSATE SODIUM 50 MG/SENNA 8.6 MG TAB PO SCH ×2 (08:41→21:06)
[2017-01-28] MEDS: FAMOTIDINE 20 MG TAB PO SCH ×2 (08:41→21:06)
[2017-01-28] MEDS: FUROSEMIDE 40 MG TAB PO SCH (08:41)
[2017-01-28] MEDS: INSULIN DETEMIR 100 UNITS/ML VIAL SQ SCH (08:42)
[2017-01-28 09:06] LABS: HEMATOCRIT 37.2 % (35.0-46.0); MEAN CELL VOLUME 81.1 FL (80.0-100.0); MEAN CORPUSCULAR HEMOGLOBIN 25.8 PG (27.0-34.0); MEAN CORPUSCULAR HGB CONC 31.8 % (32.0-36.0); PLATELET COUNT 256 TH/MM3 (150-450); RED BLOOD COUNT 4.59 MIL/MM3 (4.00-5.30); REVIEW FLAG FINAL; WHITE BLOOD COUNT 8.4 TH/MM3 (4.0-11.0)
--- NOTE | 2017-01-28 09:25 | HHI.CCPN ---
Subjective Remarks/Hospital Course The proximally 4 days of worsening dizziness. Patient states she feels like she is leaning to her left side. She has never had these symptoms before. Her only other symptom is nausea, and she did vomit once yesterday, but not since. Her nausea is not related to food. It is intermittent, but currently present. She does have a history of hypertension, but she states that she thinks that it' s well-controlled on medicine. In the emergency department she had a systolic blood pressure over 230. She was started on a nicardipine infusion. Noncontrasted head CT was negative. Her creatinine is elevated at 1.34 with an unknown baseline. She denies chest pain, shortness of breath, fever, chills, vomiting, diarrhea, constipation. Subjective: 01/25: The patient does complains of persistent nausea, refusing anti-emetic Zofran. Patient is alert and oriented, denies pain. Blood pressure well controlled with oral antihypertensive medications. Nicardipine discontinued early a.m.. Patient had episode of A. fib RVR received Cardizem, with resolution of symptoms. The patient continues to have elevated glucose levels and currently remains on high-dose insulin protocol. 01/26: Resolution of nausea over the last 12 hours. Patient continues on nicardipine infusion currently at 2 mg/hr. yesterday the patient refused hydralazine, stating that it makes her tired and sleepy, and has been removed from medication regimen. The patient underwent MRA of the brain and the neck yesterday,with plans for outpatient MRI in 6 months being followed by neurology. 01/27: No acute events overnight. Nicardipine infusion has been off for the last 24 hours. Stylet blood pressure hovers in the 180s requiring a dose of labetalol. Metoprolol increased to 100 mg every 8 hours. The patient is tolerating a diet. 01/28: Resting in bed comfortably. Denies any headache or shortness of breath currently. Objective Vital Signs Date Time Temp Pulse Resp B/P (MAP) Pulse Ox O2 Delivery O2 Flow Rate FiO2 01/28/17 06:00 56 01/28/17 04:00 97.9 18 170/88 (115) 100 01/24/17 21:12 Room Air Intake and Output 01/28/17 01/28/17 01/29/17 08:00 16:00 00:00 Intake Total 720 ml Balance 720 ml Result Diagram: 01/28/17 0823 01/27/17 1158 Imaging Last [address] 01/24/17 1821 Signed Impressions: Service Date/Time: January 19:24 - CONCLUSION: No acute intracranial abnormality demonstrated. An apparent old, small left basal ganglia lacunar infarct. Jalen Reyes MD Objective Remarks GENERAL: Morbidly obese middle-aged female, lying in bed, in no acute distress HEENT: Normocephalic. Atraumatic. Pupils equal, round, reactive, conjugate. Mucous membranes are moist NECK: Trachea is midline. There is no JVD. CHEST: Equal chest rise. Clear to auscultation bilaterally. No sensory muscle movement CARDIOVASCULAR: Normal rate, regular rhythm. Systolic blood pressure is 1120's on Nicardipine ABDOMEN: Soft, nontender, nondistended. No guarding. MUSCULOSKELETAL: Pulses 2+. No peripheral edema. NEUROLOGICAL: Awake alert oriented 3 No focal deficits. Muscle skeletal strength 5/5 in all 4 extremities. Sensation grossly intact. Cranial nerves II through XII grossly intact A/P Assessment and Plan Assessment: 51yF with Hypertensive Urgency and dizziness. Hypertension and dizziness could represent posterior fossa CVA, so we will proceed with MRI brain. If this is negative, then Hypertensive urgency will be treated with iv nicardipine infusion and PO meds to control blood pressure and transition her back to an oral regimen with better control. For now, she remains critically ill with symptomatic hypertensive urgency, possible emergency if she has ongoing CVA. Plan by systems: Neurologic: Dizziness Subacute left basal ganglia infarct Meningioma External Carotid stenosis Vertigo - 01/25 MRI-left basal ganglion subacute infarct, small meningioma - frequent neuro checks - avoid long-acting sedating meds -01/24 MRI revealed a 9 mm subacute or basal ganglia, and possible meningioma of the parietal lobe -Neurology, and neurosurgery following-plan for repeat MRI on outpatient basis in 6 months -01/25-MRA brain moderate stenosis proximal portions posterior cerebral arteries. stenosis right MCA proximal to bifurcation -01/26-MRA neck-severe stenosis proximal external carotids bilaterally Respiratory: - wean o2 for spo2 > 92% -No respiratory compromise patient currently on room air Cardiovascular: Hypertensive Urgency - Continue home meds: imdur, metoprolol, -Will Increase metoprolol to 100 mg 3 times a day-SBP last 24 hours 180's-190's requiring PRN dosing -Hydralazine discontinued - add amlodipine 10mg po daily - goal sbp < 180, - prn labetalol, IV for goal. Renal: Acute Kidney Injury - unknown baseline Cr. - trend on BMP -- Strict I/Os FEN/GI: Nausea - Zofran when necessary for nausea - Diabetic diet this a.m. - ICU electrolyte protocol - daily BMP Heme/ID: -Urine culture pending patient received 1 dose of Rocephin in the ED, plan to follow-up culture - daily CBC Endocrine: Hyperglycemia of critical illness Diabetes mellitus -01/25 Begin Levemir 10 units daily, patient continues on high-dose insulin protocol for now. Blood glucose levels greater than 300 -Continue glucose monitoring every 4 hours -- SSI, high dose protocol MSK -Evaluated by rehabilitation Dr. Avila -PT evaluation and treat as tolerated Prophylaxis: GI Prophylaxis - Pepcid DVT Prophylaxis -- SCDs - SQH Lines: Peripheral IVs providing adequate access at this time. Central line if indicated Dispo: Level 2 Discussed with patient and NURSES' REGISTRY DIRECTOR at bedside. Plan transfer to [facility] in a.m. Plan transfer to [facility] neurology floor. Jesus Ewing MD Jan 28, 2017 09:25
[2017-01-28 09:42] LABS: BICARBONATE 26.7 MEQ/L (21.0-32.0); POTASSIUM 3.4 MEQ/L (3.5-5.1)
[2017-01-28] MEDS: cloNIDine HCL 0.1 MG TAB PO PRN (10:08)
[2017-01-28] MEDS ORDERED: POTASSIUM CHLORIDE 20 MEQ CONTROLLED RELEASE TAB PO ONE (14:15)
[2017-01-28] MEDS: ACETAMINOPHEN 325 MG TAB PO PRN (14:18)
[2017-01-29] VITALS (9 sets, daily range): BP systolic 134–185; BP diastolic 60–86; PULSE 54–79; RESP 18–20; TEMP 97.6–98.2; O2SAT 97–100
[2017-01-29] MEDS: cloNIDine HCL 0.1 MG TAB PO PRN ×2 (01:45→18:27)
[2017-01-29] MEDS: CHLORHEXIDINE GLUCONATE 2 % 1 PACK (2 CLOTHS) TOP SCH (04:00)
[2017-01-29] MEDS: HEPARIN SODIUM - SQ 10,000 UNITS/ML VIAL SQ SCH ×3 (06:24→22:24)
[2017-01-29] MEDS: METOPROLOL TARTRATE 50 MG TAB PO SCH ×4 (06:24→22:20)
[2017-01-29] MEDS: ISOSORBIDE MONONITRATE 30 MG TAB PO SCH (06:24)
[2017-01-29] MEDS: INSULIN NovoLIN REGULAR SUPPLEMENTAL SCALE SQ SCH ×4 (08:00→21:00)
[2017-01-29] MEDS: FAMOTIDINE 20 MG TAB PO SCH ×2 (08:53→22:20)
[2017-01-29] MEDS: INSULIN DETEMIR 100 UNITS/ML VIAL SQ SCH (08:54)
[2017-01-29] MEDS: DOCUSATE SODIUM 50 MG/SENNA 8.6 MG TAB PO SCH ×2 (08:54→22:20)
[2017-01-29] MEDS: FUROSEMIDE 40 MG TAB PO SCH (08:54)
[2017-01-29] MEDS: ASPIRIN EC 81 MG TABEC PO SCH (08:55)
[2017-01-29 09:00] LABS: HEMATOCRIT 36.8 % (35.0-46.0); MEAN CELL VOLUME 81.6 FL (80.0-100.0); MEAN CORPUSCULAR HEMOGLOBIN 25.8 PG (27.0-34.0); MEAN CORPUSCULAR HGB CONC 31.6 % (32.0-36.0); PLATELET COUNT 268 TH/MM3 (150-450); RED CELL DISTRIBUTION WIDTH 17.9 % (11.6-17.2); REVIEW FLAG FINAL; WHITE BLOOD COUNT 8.2 TH/MM3 (4.0-11.0)
[2017-01-29 09:41] LABS: BICARBONATE 27.4 MEQ/L (21.0-32.0); POTASSIUM 3.7 MEQ/L (3.5-5.1)
--- NOTE | 2017-01-29 10:53 | HHI.PR ---
Subjective Remarks complains of dizziness- patient on chair, appears comfortable no tinnitus,speech clear talking on the phone animatedly no headaches, nausea or vomiting no weakness Objective Vitals Vital Signs Date Time Temp Pulse Resp B/P (MAP) Pulse Ox O2 Delivery O2 Flow Rate FiO2 01/29/17 04:00 98.1 58 18 185/82 (116) 100 01/29/17 00:00 98.1 54 18 165/78 (107) 97 01/28/17 20:00 97.4 55 18 195/92 (126) 99 01/28/17 16:43 97.9 54 20 150/67 (94) 100 01/28/17 12:00 98.0 55 155/72 (99) 100 01/28/17 12:00 55 I/O 01/28/17 01/28/17 01/28/17 01/29/17 01/29/17 01/29/17 07:00 15:00 23:00 07:00 15:00 23:00 Intake Total 720 ml 944 ml Balance 720 ml 944 ml Intake Oral 720 ml 944 ml # Voids 3 1 2 4 # Bowel Movements 0 1 Result Diagram: 01/29/17 0751 01/29/17 0751 Imaging Last Impressions Neck Magnetic Resonance Angiography 01/25/17 0000 Signed Impressions: Service Date/Time: Wednesday, January 25, 2017 20:12 - CONCLUSION: 1. No evidence of internal carotid artery stenosis. 2. Probable severe stenoses involving the proximal external carotid arteries bilaterally. Tong Gallagher MD Head Magnetic Resonance Angiography 01/25/17 0000 Signed Impressions: Service Date/Time: Wednesday, January 25, 2017 20:12 - CONCLUSION: 1. Focal short segment moderate stenoses involving the proximal portions of the posterior cerebral arteries bilaterally. 2. Mild focal segmental stenosis involving the right middle cerebral artery proximal to the bifurcation. Tong Gallagher MD Carotid Artery Ultrasound 01/25/17 0000 Signed Impressions: Service Date/Time: Wednesday, January 25, 2017 07:36 - CONCLUSION: Mild plaque was slightly elevated ratios but no hemodynamically significant stenosis. Lorenzo Meade MD Head CT 01/24/17 1821 Signed Impressions: Service Date/Time: January 19:24 - CONCLUSION: No acute intracranial abnormality demonstrated. An apparent old, small left basal ganglia lacunar infarct. Jalen Reyes MD Brain MRI 01/24/17 0000 Signed Impressions: Service Date/Time: January 22:07 - CONCLUSION: 1. 9 mm acute or subacute infarct of the left basal ganglia. 2. Mild chronic periventricular white matter changes. 3. Possibly a small perifalcine meningioma posteriorly of the parietal lobe. Jalen Reyes MD Objective Remarks awake and alert, oriented x 3 anicteric, no nystagmus anicteric no nuchal rigidity lungs clear regular rhythm abdomen soft, nontender, good bowel sounds extremities no edema neuro exam- non focal, negative FTNT gait testing- deferrred- will see with PT A/P Assessment and Plan 51 years old right handed femal Dizziness- intermitted Subacute left basal ganglia infarct Meningioma External Carotid stenosis HYpertension- suboptimal control - 01/25 MRI-left basal ganglion subacute infarct, small meningioma - frequent neuro checks - avoid long-acting sedating meds -01/24 MRI revealed a 9 mm subacute or basal ganglia, and possible meningioma of the parietal lobe -Neurology, and neurosurgery following-plan for repeat MRI on outpatient basis in 6 months -01/25-MRA brain moderate stenosis proximal portions posterior cerebral arteries. stenosis right MCA proximal to bifurcation -01/26-MRA neck-severe stenosis proximal external carotids bilaterally neuro exam- unremarkable but with persistent headache get a repeat Head CT Neurology ff continue PT Respiratory: -No respiratory compromise patient currently on room air Cardiovascular: Hypertensive Urgency - Continue home meds: imdur, metoprolol, -Metoprolol to 100 mg 3 times a day still with SBP in the 170s - on amlodipine 10mg po daily 01/28 - on Lasix 40 mg po daily - start Hydralazaine 25 mg po tid - goal sbp < 180, - prn labetalol, IV for goal. Renal: Acute Kidney Injury- creatinine up slightly - unknown baseline Cr. - trend on BMP -- Strict I/Os -gentle NS hyudration FEN/GI: Nausea- resolved - Zofran when necessary for nausea - Diabetic diet this a.m. - daily BMP Heme/ID: -Urine culture pending patient received 1 dose of Rocephin in the ED, final culture negative - daily CBC Endocrine: Diabetes mellitus -01/25 Begin Levemir 10 units daily, patient continues on high-dose insulin protocol for now. Blood glucose levels greater than 300 -Continue glucose monitoring every 4 hours -- SSI, high dose protocol Obesity -discuss with her weight reduction and diet and exercise MSK -Evaluated by rehabilitation Dr. Avila -PT evaluation and treat as tolerated/OT consult Prophylaxis: GI Prophylaxis - Pepcid DVT Prophylaxis -- SCDs needs a PCP to ff up with- CM consult Juan Fisher MD Jan 29, 2017 10:53
[2017-01-29] MEDS: SODIUM CHLOR 0.9% 1000 ML INJ 1,000 ML IV SCH (13:00)
[2017-01-29] MEDS: hydrALAZINE HCL 25 MG TAB PO SCH ×2 (14:12→22:20)
[2017-01-29] MEDS: MECLIZINE HCL 25 MG TAB PO SCH ×2 (14:12→22:20)
--- NOTE | 2017-01-29 16:13 | RADRPT ---
EXAM DATE/TIME: 01/29/2017 15:48 [facility] COMPARISON: CT BRAIN W/O CONTRAST, January 24, 2017, 19:24. INDICATIONS : Cephalgia. RADIATION DOSE: 56.35 CTDIvol (mGy) MEDICAL HISTORY : Cardiovascular disease. Hypertension. Chronic obstructive pulmonary disease. SURGICAL HISTORY : None. ENCOUNTER: Initial ACUITY: 1 day PAIN SCALE: 5/10 LOCATION: cranial TECHNIQUE: Multiple contiguous axial images were obtained of the head. Using automated exposure control and adj ustment of the mA and/or kV according to patient size, radiation dose was kept as low as reasonably a chievable to obtain optimal diagnostic quality images. DICOM format image data is available electro nically for review and comparison. FINDINGS: Remote left basal ganglia lacunar infarct with slight ex vacuo dilatation frontal horn left lateral v entricle. No signs of acute infarct, hemorrhage, or mass. Osseous structures are intact. CONCLUSION: No acute disease. Leonard Jamison MD on January 29, 2017 at 16:11 Board Certified Radiologist. This report was verified electronically.
[2017-01-30 00:39] VITALS: BP 130/67; PULSE 63; RESP 17; TEMP 98.5; O2SAT 100
[2017-01-30] MEDS: CHLORHEXIDINE GLUCONATE 2 % 1 PACK (2 CLOTHS) TOP SCH (04:00)
[2017-01-30 05:25] VITALS: BP 150/67; PULSE 58; RESP 18; TEMP 97.6; O2SAT 99
[2017-01-30 06:04] LABS: HEMATOCRIT 36.4 % (35.0-46.0); MEAN CELL VOLUME 81.1 FL (80.0-100.0); MEAN CORPUSCULAR HEMOGLOBIN 25.6 PG (27.0-34.0); MEAN CORPUSCULAR HGB CONC 31.5 % (32.0-36.0); PLATELET COUNT 289 TH/MM3 (150-450); RED BLOOD COUNT 4.48 MIL/MM3 (4.00-5.30); REVIEW FLAG FINAL; WHITE BLOOD COUNT 9.3 TH/MM3 (4.0-11.0)
[2017-01-30] MEDS: hydrALAZINE HCL 25 MG TAB PO SCH (06:21)
[2017-01-30] MEDS: ISOSORBIDE MONONITRATE 30 MG TAB PO SCH (06:21)
[2017-01-30] MEDS: MECLIZINE HCL 25 MG TAB PO SCH ×2 (06:21→13:29)
[2017-01-30] MEDS: METOPROLOL TARTRATE 50 MG TAB PO SCH ×2 (06:22→13:29)
[2017-01-30] MEDS: HEPARIN SODIUM - SQ 10,000 UNITS/ML VIAL SQ SCH ×2 (06:22→13:30)
[2017-01-30 06:30] LABS: BICARBONATE 28.1 MEQ/L (21.0-32.0)
[2017-01-30 07:00] VITALS: PULSE 56
[2017-01-30] MEDS: INSULIN NovoLIN REGULAR SUPPLEMENTAL SCALE SQ SCH ×3 (08:00→17:00)
[2017-01-30 08:16] VITALS: BP 151/67; PULSE 57; RESP 19; TEMP 97.9; O2SAT 100
--- NOTE | 2017-01-30 08:18 | HHI.PR ---
Subjective Remarks feels great, had a good sleep, no nausea, vomiting or dizziness no weakness ambulated by herself- states does not want the walker + good BM this am HR - 55/min Objective Vitals Vital Signs Date Time Temp Pulse Resp B/P (MAP) Pulse Ox O2 Delivery O2 Flow Rate FiO2 01/30/17 05:25 97.6 58 18 150/67 (94) 99 01/30/17 00:39 98.5 63 17 130/67 (88) 100 01/29/17 23:00 61 01/29/17 20:00 98.0 62 18 168/72 (104) 99 01/29/17 18:24 61 169/75 (106) 01/29/17 16:19 98.0 62 20 175/77 (109) 98 01/29/17 16:02 54 01/29/17 12:30 97.6 58 18 162/86 (111) 100 I/O 01/29/17 01/29/17 01/29/17 01/30/17 01/30/17 01/30/17 06:59 14:59 22:59 06:59 14:59 22:59 Intake Total 360 ml 480 ml Balance 360 ml 480 ml Intake Oral 360 ml 480 ml # Voids 4 4 4 # Bowel Movements 1 2 Result Diagram: 01/30/17 0500 01/30/17 0500 Imaging Last Impressions Head CT 01/29/17 0000 Signed Impressions: Service Date/Time: Sunday, January 29, 2017 15:48 - CONCLUSION: No acute disease. Leonard Jamison MD Neck Magnetic Resonance Angiography 01/25/17 0000 Signed Impressions: Service Date/Time: Wednesday, January 25, 2017 20:12 - CONCLUSION: 1. No evidence of internal carotid artery stenosis. 2. Probable severe stenoses involving the proximal external carotid arteries bilaterally. Tong Gallagher MD Head Magnetic Resonance Angiography 01/25/17 0000 Signed Impressions: Service Date/Time: Wednesday, January 25, 2017 20:12 - CONCLUSION: 1. Focal short segment moderate stenoses involving the proximal portions of the posterior cerebral arteries bilaterally. 2. Mild focal segmental stenosis involving the right middle cerebral artery proximal to the bifurcation. Tong Gallagher MD Carotid Artery Ultrasound 01/25/17 0000 Signed Impressions: Service Date/Time: Wednesday, January 25, 2017 07:36 - CONCLUSION: Mild plaque was slightly elevated ratios but no hemodynamically significant stenosis. Lorenzo Meade MD Brain MRI 01/24/17 0000 Signed Impressions: Service Date/Time: January 22:07 - CONCLUSION: 1. 9 mm acute or subacute infarct of the left basal ganglia. 2. Mild chronic periventricular white matter changes. 3. Possibly a small perifalcine meningioma posteriorly of the parietal lobe. Jalen Reyes MD Objective Remarks awake and alert, oriented x 3 anicteric, no nystagmus anicteric no nuchal rigidity lungs clear regular rhythm abdomen soft, nontender, good bowel sounds extremities no edema neuro exam- non focal, negative FTNT gait steady, no ataxia A/P Assessment and Plan 51 years old right handed femal Dizziness- intermitted Subacute left basal ganglia infarct Meningioma External Carotid stenosis HYpertension- suboptimal control - 01/25 MRI-left basal ganglion subacute infarct, small meningioma - frequent neuro checks- neuro stable -01/24 MRI revealed a 9 mm subacute or basal ganglia, and possible meningioma of the parietal lobe -Neurology, and neurosurgery following-plan for repeat MRI on outpatient basis in 6 months -01/25-MRA brain moderate stenosis proximal portions posterior cerebral arteries. stenosis right MCA proximal to bifurcation -01/26-MRA neck-severe stenosis proximal external carotids bilaterally neuro exam- unremarkable brepeat Head CT- negative Neurology ff OP ff up with neurosurgery- Dr. Luu - in 6 months for repeat MRI- to ff up - Meningioma continue PT DC home today Hypertensive Urgency - BP improved- discussed with her goals and needs ff up with a PCP - Continue home meds: imdur, metoprolol, -Metoprolol to 100 mg 3 times a day - HR some readings in the 50s - will decrease Lopressor to 50 mg po q8 with hold parameter - on amlodipine 10mg po daily - on Lasix 40 mg po daily - increase Hydralazine to 50 mg po q8 (at home was on 75 mg po q8) Renal: Acute Kidney Injury- likely with undeerlying CKI from hypertesive nephrosclerosis - creatinine stabilizing -- OP ff up with PCP FEN/GI: Nausea- resolved - Diabetic diet Heme/ID: -Urine culture pending patient received 1 dose of Rocephin in the ED, final culture negative - Endocrine: Diabetes mellitus- a1C 13.6 -01/25 Begin Levemir 10 units daily, patient continues on high-dose insulin protocol for now. Blood glucose levels greater than 300 -Continue glucose monitoring tid and hs -- SSI, - d/w her needs a PCP to ff up with Obesity BMI 48. d/w her weight reduction and possibly enrolling in anexercise program ff up with PCP diet PT/OT daily Prophylaxis: GI Prophylaxis - Pepcid DVT Prophylaxis -- SCDs needs a PCP to ff up with- CM consult possible DC today Juan Fisher MD Jan 30, 2017 08:18
[2017-01-30] MEDS ORDERED: ISOS30TA3 PO (08:42)
[2017-01-30] MEDS ORDERED: HYDR-3799 PO (08:42)
[2017-01-30] MEDS ORDERED: METO-309 PO (08:42)
[2017-01-30] MEDS ORDERED: ASPI1TAB91 PO (08:42)
[2017-01-30] MEDS ORDERED: LEVEMIR SQ (08:42)
[2017-01-30] MEDS: ASPIRIN EC 81 MG TABEC PO SCH (08:52)
[2017-01-30] MEDS: FUROSEMIDE 40 MG TAB PO SCH (08:53)
[2017-01-30] MEDS ORDERED: NOVORP2 SQ (08:55)
[2017-01-30] MEDS: FAMOTIDINE 20 MG TAB PO SCH (08:56)
[2017-01-30] MEDS: DOCUSATE SODIUM 50 MG/SENNA 8.6 MG TAB PO SCH (08:57)
[2017-01-30] MEDS ORDERED: INSULIN DETEMIR 100 UNITS/ML VIAL SQ SCH (09:00)
[2017-01-30] MEDS: SODIUM CHLOR 0.9% 1000 ML INJ 1,000 ML IV SCH (11:49)
[2017-01-30 12:06] VITALS: BP 133/62; PULSE 59; RESP 20; TEMP 97.9; O2SAT 100
[2017-01-30] MEDS ORDERED: hydrALAZINE HCL 25 MG TAB PO SCH (14:00)
[2017-01-30 15:46] VITALS: BP 137/63; PULSE 59; RESP 20; TEMP 98.3; O2SAT 98
--- NOTE | 2017-01-30 17:13 | HHI.DS ---
Discharge Summary Admission Date Jan 24, 2017 at 20:23 Discharge Date: Jan 30, 2017 Admitting Diagnosis hypertensive emergency, dizziness (1) subacute CVA Diagnosis: Principal Procedures none Brief History - From Admission The proximally 4 days of worsening dizziness. Patient states she feels like she is leaning to her left side. She has never had these symptoms before. Her only other symptom is nausea, and she did vomit once yesterday, but not since. Her nausea is not related to food. It is intermittent, but currently present. She does have a history of hypertension, but she states that she thinks that it' s well-controlled on medicine. In the emergency department she had a systolic blood pressure over 230. She was started on a nicardipine infusion. Noncontrasted head CT was negative. Her creatinine is elevated at 1.34 with an unknown baseline. She denies chest pain, shortness of breath, fever, chills, vomiting, diarrhea, constipation. CBC/BMP: 01/30/17 0500 01/30/17 0500 Significant Findings Laboratory Tests Test 01/28/17 08:23 01/29/17 07:51 01/30/17 05:00 Mean Corpuscular Hemoglobin 25.8 PG (27.0-34.0) 25.8 PG (27.0-34.0) 25.6 PG (27.0-34.0) Mean Corpuscular Hemoglobin Concent 31.8 % (32.0-36.0) 31.6 % (32.0-36.0) 31.5 % (32.0-36.0) Red Cell Distribution Width 18.0 % (11.6-17.2) 17.9 % (11.6-17.2) 18.0 % (11.6-17.2) Creatinine 1.16 MG/DL (0.50-1.00) 1.22 MG/DL (0.50-1.00) 1.25 MG/DL (0.50-1.00) Random Glucose 113 MG/DL (74-106) 122 MG/DL (74-106) Potassium Level 3.4 MEQ/L (3.5-5.1) Estimat Glomerular Filtration Rate 60 ML/MIN (>89) 56 ML/MIN (>89) 55 ML/MIN (>89) Blood Urea Nitrogen 21 MG/DL (7-18) 24 MG/DL (7-18) Hemoglobin 11.5 GM/DL (11.6-15.3) Imaging Last Impressions Head CT 01/29/17 Signed Impressions: Service Date/Time: Sunday, January 29, 2017 15:48 - CONCLUSION: No acute disease. Leonard Jamison MD Neck Magnetic Resonance Angiography 01/25/17 0000 Signed Impressions: Service Date/Time: Wednesday, January 25, 2017 20:12 - CONCLUSION: 1. No evidence of internal carotid artery stenosis. 2. Probable severe stenoses involving the proximal external carotid arteries bilaterally. Tong Gallagher MD Head Magnetic Resonance Angiography 01/25/17 Signed Impressions: Service Date/Time: Wednesday, January 25, 2017 20:12 - CONCLUSION: 1. Focal short segment moderate stenoses involving the proximal portions of the posterior cerebral arteries bilaterally. 2. Mild focal segmental stenosis involving the right middle cerebral artery proximal to the bifurcation. Tong Gallagher MD Carotid Artery Ultrasound 01/25/17 Signed Impressions: Service Date/Time: Wednesday, January 25, 2017 07:36 - CONCLUSION: Mild plaque was slightly elevated ratios but no hemodynamically significant stenosis. Lorenzo Meade MD Brain MRI 01/24/17 Signed Impressions: Service Date/Time: January 22:07 - CONCLUSION: 1. 9 mm acute or subacute infarct of the left basal ganglia. 2. Mild chronic periventricular white matter changes. 3. Possibly a small perifalcine meningioma posteriorly of the parietal lobe. Jalen Reyes MD PE at Discharge awake and alert, oriented x 3 anicteric, no nystagmus anicteric no nuchal rigidity lungs clear regular rhythm abdomen soft, nontender, good bowel sounds extremities no edema neuro exam- non focal, negative FTNT gait steady, no ataxia Pt update on day of discharge good readings ambulating well- no walker d/w her glucose [facility] Hospital Course 51 years old right handed femal Dizziness- intermitted Subacute left basal ganglia infarct Meningioma External Carotid stenosis HYpertension- suboptimal control - 01/25 MRI-left basal ganglion subacute infarct, small meningioma - frequent neuro checks- neuro stable -01/24 MRI revealed a 9 mm subacute or basal ganglia, and possible meningioma of the parietal lobe -Neurology, and neurosurgery following-plan for repeat MRI on outpatient basis in 6 months -01/25-MRA brain moderate stenosis proximal portions posterior cerebral arteries. stenosis right MCA proximal to bifurcation -01/26-MRA neck-severe stenosis proximal external carotids bilaterally neuro exam- unremarkable brepeat Head CT- negative Neurology ff OP ff up with neurosurgery- Dr. Luu - in 6 months for repeat MRI- to ff up - Meningioma continue PT DC home today Hypertensive Urgency - BP improved- discussed with her goals and needs ff up with a PCP - Continue home meds: imdur, metoprolol, -Metoprolol to 100 mg 3 times a day - HR some readings in the 50s - will decrease Lopressor to 50 mg po q8 with hold parameter - on amlodipine 10mg po daily - on Lasix 40 mg po daily - increase Hydralazine to 50 mg po q8 (at home was on 75 mg po q8) Renal: Acute Kidney Injury- likely with undeerlying CKI from hypertesive nephrosclerosis - creatinine stabilizing -- OP ff up with PCP FEN/GI: Nausea- resolved - Diabetic diet Heme/ID: -Urine culture - negative Endocrine: Diabetes mellitus- a1C 13.6 -01/25 Begin Levemir 10 units daily, patient continues on high-dose insulin protocol for now. Blood glucose levels greater than 300 -Continue glucose monitoring tid and hs -- SSI, - d/w her needs a PCP to ff up with Obesity BMI 48. d/w her weight reduction and possibly enrolling in anexercise program ff up with PCP diet PT/OT daily Prophylaxis: GI Prophylaxis - Pepcid DVT Prophylaxis -- SCDs needs a PCP to ff up with- CM consult DC today Pt Condition on Discharge: Stable Discharge Disposition: Discharge Home Discharge Time: <= 30 minutes Discharge Instructions DIET: Follow Instructions for: Heart Healthy Diet, Diabetic Diet Speech Therapy-Diet Recommends: Regular Activities you can perform: Weight Bearing as Jaswant Activities to Avoid: Strenuous Activity Follow up Referrals: Neurology - 2 Weeks with Deven Carroll MD Neurosurgery - 4 Weeks with [facility] PCP Follow-up - 1 Week with [facility]/PCP New Orders: BASIC METABOLIC PROF - 1 Week New Medications: Insulin Human Regular Inj (Novolin R Inj) 1,000 Unit/10 Ml Vial 1-9 UNITS SQ ACHS PRN for DM, #10 ML 0 Refills Max dose at bedtime:( )units; sugars less than 70,(0) units; sugars 150-199,(1)unit; sugars 200-249,(3)units; sugars 250-299,(5) units; sugars 300-349,(7)units; sugars greater than 349,(9)units Hydralazine HCl (Hydralazine HCl) 25 Mg Tablet 50 MG PO Q8HR for HTN for 30 Days, #90 TAB Insulin Detemir Inj (Levemir Inj) 1,000 unit/ 10 ML Vial 15 UNITS SQ DAILY for DM for 30 Days, #2 INJECTION Do not mix with any other Insulin. Isosorbide Mononitrate ER (Isosorbide Mononitrate ER) 30 Mg Betzy 30 MG PO DAILY@0700 for HTN for 30 Days, #30 TAB Metoprolol Tartrate (Lopressor) 50 Mg Tab 100 MG PO Q8HR for HTN for 30 Days, #90 TAB Continued Medications: Aspirin DR (Aspirin Adult Low Strength) 81 Mg Tabdr 81 MG PO DAILY for CVA for 30 Days, #30 TAB 5 Refills (This prescription has been renewed) Furosemide (Lasix) 40 Mg Tab 40 MG PO DAILY for Heart, #30 TAB 0 Refills Discontinued Medications: Isosorbide Mononitrate ER (Isosorbide Mononitrate ER) 30 Mg Betzy 30 MG PO DAILY for Prevent Chest Pain, #30 TAB 0 Refills Metformin (Metformin) 1,000 Mg Tab 1000 MG PO BID for Blood Sugar Management, #60 TAB 0 Refills With meals Juan Fisher MD Jan 30, 2017 17:13
[2017-01-31] MEDS ORDERED: METOPROLOL TARTRATE 50 MG TAB PO SCH (07:00)
== END 2017-01-30 19:08 | disposition home or self-care (01) | DRG 304 ==
LOC: NEPE 17:26 → NEDA 20:23 → HIMW 21:15 → N05A 01-28 14:54
PROVIDERS: ADMIT Internal Medicine; ATTEND Internal Medicine
DX: I16.1 Hypertensive emergency (principal); I63.9 Cerebral infarction, unspecified; N17.9 Acute kidney failure, unspecified; Z68.42 Body mass index [BMI] 45.0-49.9, adult; I65.23 Occlusion and stenosis of bilateral carotid arteries; D32.9 Benign neoplasm of meninges, unspecified; E66.01 Morbid (severe) obesity due to excess calories; E11.65 Type 2 diabetes mellitus with hyperglycemia; Z79.84 Long term (current) use of oral hypoglycemic drugs; F17.210 Nicotine dependence, cigarettes, uncomplicated; H55.00 Unspecified nystagmus; I25.2 Old myocardial infarction; I25.10 Atherosclerotic heart disease of native coronary artery without angina pectoris; I48.91 Unspecified atrial fibrillation; I10 Essential (primary) hypertension; Z79.82 Long term (current) use of aspirin
CPT/HCPCS: 70450; 70544; 70548; 70551; 76937; 80048; 80061; 81001; 82948; 83036; 84484; 85025; 85027; 85610; 87086; 87641; 93005; 93306; 93880; 94667; 96365; 96366; 96368; 96375; A9579; J0360; J0696; J1644; J2405; J3475; J3480; J7030; J7050